=== PATIENT | female | born 1985 | race Caucasian/White ===

== ENCOUNTER 2017-09-19 10:18 | Emergency (ER) | payer SELFPAY ==
[2017-09-19 11:41] LABS: Barbiturates NEGATIVE; Benzodiazepines NEGATIVE; Cocaine NEGATIVE; Opiates NEGATIVE; Phencyclidine NEGATIVE; THC Cannibis POSITIVE
[2017-09-19 11:44] LABS: METHAMPHETAM POSITIVE
[2017-09-19 12:00] LABS: Absolute Lymphocytes (CBC) 1.5 K/uL (0.7-4.9); Absolute Monocytes 0.4 K/uL (0.1-1.3); Absolute Neutrophil 4.7 K/uL (1.8-8.0); Basophils % 0.4 % (0-1.3); Eosinophils % 0.7 % (0-4.4); Hematocrit 43.6 % (36.0-45.0); Lymphocytes % 22.8 % (15.3-44.8); MCH 33.4 pg (27.0-35.0); MCV 98.4 fL (80-100); MPV 8.4 fL (7.6-11.3); Monocytes % 5.7 % (3.3-12.3); RBC Red Blood Cell Count 4.44 M/uL (3.86-4.86)
[2017-09-19 12:02] LABS: Protime INR 1.04
[2017-09-19 12:06] LABS: Bicarbonate 23 mEq/L (21-31); Glucose Level 95 mg/dL (65-120); Potassium 3.9 mEq/L (3.6-5.0); Sodium Level 139 mEq/L (135-145)
[2017-09-19 12:12] LABS: ALT/SGPT 12 IU/L (10-60); AST/SGOT 18 IU/L (10-42); Albumin 4.5 g/dL (3.2-5.5); Alkaline Phosphatase 77 IU/L (42-121); BUN Blood Urea Nitrogen 12 mg/dL (6-20); Bilirubin Direct 0.1 mg/dL (0-0.2); Bilirubin Total 0.5 mg/dL (0.3-1.2); Protein, Total 7.4 g/dL (6.0-8.3)
[2017-09-19 12:14] LABS: Alcohol Serum/Plasma < 10 mg/dl; Salicylates Level < 4.0 mg/dl (<30)
[2017-09-19 13:20] LABS: Urine Blood 2+ (NEG); Urine Glucose NEGATIVE (NEG); Urine Protein NEGATIVE (NEG); Urine Specific Gravity 1.015 (1.005-1.030)
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
[2017-09-19 16:14] VITALS: TEMP 97.5
[2017-09-19 16:19] VITALS: O2SAT 99
[2017-09-19 16:20] VITALS: BP 114/77
--- NOTE | 2017-09-20 10:32 | EKG ---
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
== END 2017-09-19 16:08 | disposition home or self-care (01) ==
LOC: ER 10:18
DX: S61.512A Laceration without foreign body of left wrist, initial encounter (principal); F41.8 Other specified anxiety disorders; W26.0XXA Contact with knife, initial encounter; Y93.9 Activity, unspecified; Y92.000 Kitchen of unspecified non-institutional (private) residence as the place of occurrence of the external cause
CPT/HCPCS: 36415; 80048; 80076; 80307; 80320; 80329; 81003; 81025; 85025; 85610; 85730; 93005; 99284

== ENCOUNTER 2018-12-29 16:03 | Emergency (ER) | payer SELFPAY ==
[2018-12-29] MEDS ORDERED: TETANUS & DIPHTHERIA TOX,ADULT 0.5 ML VIAL ONE (16:33)
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
--- NOTE | 2018-12-29 16:56 | EDPHYS ---
Physician Documentation [facility] Name: Glenda Dang Age: 33 yrs Sex: Female : 1985 Arrival Date: 12/29/2018 Time: 16:04 Bed 30 Private MD: ED Physician Alejandro Parish HPI: 12/29 16:25 This 33 yrs old Female presents to ER via Ambulatory with complaints of cp laceration to left lower leg. 16:25 The patient presents with a laceration. The complaints affect the lateral aspect of cp left calf. Context: resulted from piece of large broken glass of a coffee mug. Onset: The symptoms/episode began/occurred yesterday morning. Associated signs and symptoms: Pertinent positives: mild bleeding, Pertinent negatives numbness, warmth. Treatment prior to arrival includes: wrap bandage. 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 - Social history:: Smoking status: Patient uses tobacco products, smokes one-half pack cigarettes per day. - Ebola Screening: : No symptoms or risks identified at this time. ROS: 16:30 Constitutional: Negative for body aches, chills, fever, poor PO intake. cp 16:30 Eyes: Negative for injury, pain, redness, and discharge. cp 16:30 ENT: Negative for drainage from ear(s), ear pain, sore throat, difficulty swallowing, difficulty handling secretions. 16:30 Cardiovascular: Negative for chest pain. 16:30 Respiratory: Negative for cough, shortness of breath, wheezing. 16:30 Abdomen/GI: Negative for abdominal pain, nausea, vomiting, and diarrhea. 16:30 Skin: Positive for laceration(s), of the left lower leg. 16:30 All other systems are negative. Exam: 16:35 Constitutional: The patient appears in no acute distress, alert, awake, well developed, cp well nourished. 16:35 Head/Face: Normocephalic, atraumatic. cp 16:35 Skin: cellulitis, is not appreciated, injury, laceration(s), the wound is approximately cp 4 cm(s), of the left upper leg, that can be described as no foreign body, linear, with mild bleeding. Vital Signs: 16:12 BP 105 / 69; Pulse 76; Resp 18 S; Temp 98.4(TE); Pulse Ox 99% on R/A; Weight 77.11 kg aa5 (R); Height 5 ft. 5 in. (165.10 cm) (R); Pain 0/10; 16:59 BP 106 / 66; Pulse 75; Resp 17; Temp 98; Pulse Ox 100% on R/A; rv 16:12 Body Mass Index 28.29 (77.11 kg, 165.10 cm) aa5 MDM: 16:18 Patient medically screened. cp 16:45 Differential diagnosis: open fracture, cellulitis, simple laceration. cp 16:52 Data reviewed: vital signs, nurses notes, and as a result, I will discharge patient. cp 16:52 Counseling: I had a detailed discussion with the patient and/or guardian regarding: the cp historical points, exam findings, and any diagnostic results supporting the discharge/admit diagnosis, to return to the emergency department if symptoms worsen or persist or if there are any questions or concerns that arise at home. Response to treatment: the patient's symptoms have markedly improved after treatment. 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 Exp: rv 08/21/2020. Lot #: [id number]. } Route: IM; Site: right deltoid; 16:59 Follow up: Response: No adverse reaction rv Disposition: 12/30 15:39 Co-signature as Attending Physician, Alejandro Parish MD. gs Disposition: 12/29/18 16:53 Discharged to Home. Impression: Laceration without foreign body of lower leg - left. - Condition is Stable. - Discharge Instructions: Laceration Care, Adult. - Prescriptions for Keflex 500 mg Oral Capsule - take 1 capsule by ORAL route every 8 hours for 10 days; 30 capsule. - Medication Reconciliation Form, Thank You Letter, Antibiotic Education, Prescription Opioid Use form. - Follow up: Private Physician; When: 1 - 2 days; Reason: Wound Recheck. - Problem is new. - Symptoms have improved. Signatures: Yesenia Conrad, RN RN aa5 Nilson Ulrich PA PA cp Alejandro Parish MD MD gs Weston Ospina RN RN rv Corrections: (The following items were deleted from the chart) 12/29 17:00 16:53 12/29/2018 16:53 Discharged to Home. Impression: Laceration without foreign body rv of lower leg - left. Condition is Stable. Forms are Medication Reconciliation Form, Thank You Letter, Antibiotic Education, Prescription Opioid Use. Follow up: Private Physician; When: 1 - 2 days; Reason: Wound Recheck. Problem is new. Symptoms have improved. cp
[2018-12-29 18:08] VITALS: BP 106/66; TEMP 98; O2SAT 100
== END 2018-12-29 17:00 | disposition home or self-care (01) ==
LOC: ER 16:03
DX: S81.812A Laceration without foreign body, left lower leg, initial encounter (principal); W25.XXXA Contact with sharp glass, initial encounter; Y93.9 Activity, unspecified; Y92.9 Unspecified place or not applicable; Z23 Encounter for immunization; F17.210 Nicotine dependence, cigarettes, uncomplicated
CPT/HCPCS: 90471; 90714; 99284

== ENCOUNTER 2019-05-14 13:34 | Emergency (ER) | payer SELFPAY ==
--- NOTE | 2019-05-14 14:23 | EDPHYS ---
Physician Documentation [facility] Name: Glenda Dang Age: 34 yrs Sex: Female : 1985 Arrival Date: 05/14/2019 Time: 13:36 Bed 23 Private MD: ED Physician Estuardo Munguia HPI: 05/14 14:20 This 34 yrs old Female presents to ER via Ambulatory with complaints of kb Foreign Body In Ear - bead. 14:20 The patient presents with a foreign body sensation, a fullness. The complaints affect kb the right ear. Onset: The symptoms/episode began/occurred yesterday. Modifying factors: The symptoms are alleviated by nothing, the symptoms are aggravated by nothing. Associated signs and symptoms: The patient has no apparent associated signs or symptoms. Severity of symptoms: At their worst the symptoms were moderate in the emergency department the symptoms are unchanged. The patient has not experienced similar symptoms in the past. The patient has not recently seen a physician. Pt reports she felt pressure in her ears so she put a bead in each one. Was able to get the bead out of the left ear, but couldn't get it out of the right. Comes in with bead stuck in right ear canal. . Historical: - Allergies: 14:06 No Known Allergies; tr5 - PMHx: 14:06 Anxiety; Depression; tr5 - PSHx: 14:06 None; tr5 - Immunization history:: Adult Immunizations up to date. - Social history:: Smoking status: Patient uses tobacco products, smokes one pack cigarettes per day. - Ebola Screening: : No symptoms or risks identified at this time. ROS: 14:19 Constitutional: Negative for fever, chills, and weight loss, Neck: Negative for injury, kb pain, and swelling, Cardiovascular: Negative for chest pain, palpitations, and edema, Respiratory: Negative for shortness of breath, cough, wheezing, and pleuritic chest pain, Abdomen/GI: Negative for abdominal pain, nausea, vomiting, diarrhea, and constipation, MS/Extremity: Negative for injury and deformity, Skin: Negative for injury, rash, and discoloration, Neuro: Negative for headache, weakness, numbness, tingling, and seizure. 14:19 ENT: Positive for ear pain, foreign body sensation. Exam: 14:18 Constitutional: This is a well developed, well nourished patient who is awake, alert, kb and in no acute distress. Head/Face: Normocephalic, atraumatic. Neck: Trachea midline, no thyromegaly or masses palpated, and no cervical lymphadenopathy. Supple, full range of motion without nuchal rigidity, or vertebral point tenderness. No Meningismus. Chest/axilla: Normal chest wall appearance and motion. Nontender with no deformity. No lesions are appreciated. Cardiovascular: Regular rate and rhythm with a normal S1 and S2. No gallops, murmurs, or rubs. Normal PMI, no JVD. No pulse deficits. Respiratory: Lungs have equal breath sounds bilaterally, clear to auscultation and percussion. No rales, rhonchi or wheezes noted. No increased work of breathing, no retractions or nasal flaring. Abdomen/GI: Soft, non-tender, with normal bowel sounds. No distension or tympany. No guarding or rebound. No evidence of tenderness throughout. Skin: Warm, dry with normal turgor. Normal color with no rashes, no lesions, and no evidence of cellulitis. MS/ Extremity: Pulses equal, no cyanosis. Neurovascular intact. Full, normal range of motion. Neuro: Awake and alert, GCS 15, oriented to person, place, time, and situation. Cranial nerves II-XII grossly intact. Motor strength 5/5 in all extremities. Sensory grossly intact. Cerebellar exam normal. Normal gait. 14:18 ENT: External ear(s): are unremarkable, Ear canal(s): foreign body, a bead, in the right external ear canal, TM's: bulging, bilaterally, fluid levels, bilaterally, Nose: is normal, Mouth: is normal. Vital Signs: 14:06 BP 123 / 66; Pulse 98; Resp 18; Temp 98.5(O); Pulse Ox 98% on R/A; Weight 61.23 kg; tr5 Procedures: 14:18 Foreign Body Removal: a bead, from the right ear canal, by using a curette, Dressing: kb none, The patient tolerated the removal well. MDM: 13:57 Patient medically screened. kb 14:18 Data reviewed: vital signs, nurses notes. Data interpreted: Pulse oximetry: on room air kb is 98 %. Interpretation: normal. Counseling: I had a detailed discussion with the patient and/or guardian regarding: the historical points, exam findings, and any diagnostic results supporting the discharge/admit diagnosis, the need for outpatient follow up, a family practitioner, to return to the emergency department if symptoms worsen or persist or if there are any questions or concerns that arise at home. Administered Medications: No medications were administered Disposition: 16:33 Co-signature as Attending Physician, Estuardo Munguia MD I agree with the assessment and kdr plan of care. Disposition: 05/14/19 14:22 Discharged to Home. Impression: Otitis media, unspecified, bilateral, Foreign body in right ear - removed. - Condition is Stable. - Discharge Instructions: Otitis Media, Adult, [id number], Ear Foreign Body, [id number]. - Prescriptions for Amoxicillin 875 mg Oral Tablet - take 1 tablet by ORAL route every 12 hours for 10 days; 20 tablet. - Medication Reconciliation Form, Thank You Letter, Antibiotic Education, Prescription Opioid Use form. - Follow up: Emergency Department; When: As needed; Reason: Worsening of condition. Follow up: Private Physician; When: 2 - 3 days; Reason: Recheck today's complaints, Continuance of care, Re-evaluation by your physician. Signatures: June Lynn, RESIDENT INTERN-C RESIDENT INTERN-Ckb Estuardo Munguia MD MD kdr Carlos Stewart RN RN tr5 Corrections: (The following items were deleted from the chart) 14:28 14:22 05/14/2019 14:22 Discharged to Home. Impression: Otitis media, unspecified, tr5 bilateral; Foreign body in right ear - removed. Condition is Stable. Forms are Medication Reconciliation Form, Thank You Letter, Antibiotic Education, Prescription Opioid Use. Follow up: Emergency Department; When: As needed; Reason: Worsening of condition. Follow up: Private Physician; When: 2 - 3 days; Reason: Recheck today's complaints, Continuance of care, Re-evaluation by your physician. kb
--- NOTE | 2019-05-14 14:23 | ER ---
Nurse's Notes [facility] Name: Glenda Dang Age: 34 yrs Sex: Female : 1985 Arrival Date: 05/14/2019 Time: 13:36 Bed 23 Private MD: Diagnosis: Otitis media, unspecified, bilateral;Foreign body in right ear-removed Presentation: 05/14 14:04 Presenting complaint: Patient states: "Yesterday I put a bead in my R ear and now i tr5 can't get it out. I tried using a kalyan pin to get it out but it is stuck.". Transition of care: patient was not received from another setting of care. Onset of symptoms was May 14, 2019. Risk Assessment: Do you want to hurt yourself or someone else? Patient reports no desire to harm self or others. Initial Sepsis Screen: Does the patient meet any 2 criteria? No. Patient's initial sepsis screen is negative. Does the patient have a suspected source of infection? No. Patient's initial sepsis screen is negative. Care prior to arrival: None. 14:04 Method Of Arrival: Ambulatory tr5 14:04 Acuity: NHI 4 tr5 Historical: - Allergies: 14:06 No Known Allergies; tr5 - PMHx: 14:06 Anxiety; Depression; tr5 - PSHx: 14:06 None; tr5 - Immunization history:: Adult Immunizations up to date. - Social history:: Smoking status: Patient uses tobacco products, smokes one pack cigarettes per day. - Ebola Screening: : No symptoms or risks identified at this time. Screenin:08 Abuse screen: Denies threats or abuse. Nutritional screening: No deficits noted. tr5 Tuberculosis screening: No symptoms or risk factors identified. Fall Risk None identified. Assessment: 14:08 General: Appears in no apparent distress. Behavior is calm, cooperative, appropriate tr5 for age. Pain: Denies pain. Neuro: Level of Consciousness is awake, alert, obeys commands, Oriented to person, place, time, Rhinologist are equal bilaterally Moves all extremities. Cardiovascular: Heart tones present Capillary refill < 3 seconds. Respiratory: Airway is patent Respiratory effort is even, unlabored. GI: No signs and/or symptoms were reported involving the gastrointestinal system. : No signs and/or symptoms were reported regarding the genitourinary system. EENT: Ear canal w/ foreign body noted from right ear. Derm: No signs and/or symptoms reported regarding the dermatologic system. Musculoskeletal: No signs and/or symptoms reported regarding the musculoskeletal system. Vital Signs: 14:06 BP 123 / 66; Pulse 98; Resp 18; Temp 98.5(O); Pulse Ox 98% on R/A; Weight 61.23 kg; tr5 ED Course: 13:36 Patient arrived in ED. as 13:57 [facility]C [facility] kb 13:57 Estuardo Munguia MD is Attending Physician. kb 14:04 Carlos Stewart RN is Primary Nurse. tr5 14:05 Triage completed. tr5 14:06 Arm band placed on Patient placed. tr5 14:08 Bed in low position. Call light in reach. Side rails up X 1. tr5 14:27 No provider procedures requiring assistance completed. Patient did not have IV access tr5 during this emergency room visit. Administered Medications: No medications were administered Outcome: 14:22 Discharge ordered by MD. kb 14:27 Discharged to home ambulatory. tr5 14:27 Condition: stable 14:27 Discharge instructions given to patient, family, Instructed on discharge instructions, follow up and referral plans. medication usage, Demonstrated understanding of instructions, follow-up care, medications, Prescriptions given X 1. 14:28 Patient left the ED. tr5 Signatures: June Lynn FNP-C FNP-Ckb Martinez, Amelia as Carlos Stewart, RN RN tr5
[2019-05-14 14:34] VITALS: BP 123/66; TEMP 98.5; O2SAT 98
== END 2019-05-14 14:28 | disposition home or self-care (01) ==
LOC: ER 13:34
PROC: 09C3XZZ Extirpation of Matter from Right External Auditory Canal, External Approach (ICD-10-PCS; principal; 2019-05-14)
DX: T16.1XXA Foreign body in right ear, initial encounter (principal); H66.93 Otitis media, unspecified, bilateral; F17.210 Nicotine dependence, cigarettes, uncomplicated
CPT/HCPCS: 99282

== ENCOUNTER 2019-08-18 12:26 | Emergency (ER) | payer SELFPAY ==
[2019-08-18 15:07] VITALS: BP 120/90; TEMP 98.1; O2SAT 99
== END 2019-08-18 15:01 | disposition home or self-care (01) ==
LOC: ER 12:26
PROC: 0JQ10ZZ Repair Face Subcutaneous Tissue and Fascia, Open Approach (ICD-10-PCS; principal; 2019-08-18)
DX: S01.412A Laceration without foreign body of left cheek and temporomandibular area, initial encounter (principal); W01.0XXA Fall on same level from slipping, tripping and stumbling without subsequent striking against object, initial encounter; Y93.89 Activity, other specified; Y92.9 Unspecified place or not applicable; Z23 Encounter for immunization; F17.210 Nicotine dependence, cigarettes, uncomplicated
CPT/HCPCS: 70450; 70486; 76377; 90714; 99284

== ENCOUNTER 2024-06-23 20:53 | Emergency (ER) | payer SELFPAY ==
--- OUTSIDE RECORDS SUMMARY | 2024-06-23 20:59 | XMS REPORT | Continuity of Care Document ---
Author Name Unknown Address [address] [facility] [address] [place] [address] [facility] [address] [facility] 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 Ordering Clinician Indication Dosage Frequency Signature (SIG) Comments Components Source Wellbutrin XL 300 mg 24 hr tablet, extended release 01-19 00:00: 00 Yes 1mg Gabriel Ignacio Latuda 40 mg tablet 01-19 00:00: 00 Yes 1mg Gabriel Ignacio hydroxyzine HCl 25 mg tablet 01-19 00:00: 00 Yes 1mg Gabriel Ignacio buspirone 15 mg tablet 01-19 00:00: 00 Yes 1mg Gabriel Ignacio gabapentin 300 mg capsule 01-19 00:00: 00 Yes 1mg Gabriel Ignacio methocarbam ol 500 mg tablet 01-14 00:00: 00 Yes 1mg Gabriel Ignacio omeprazole 20 mg capsule,del ayed release 01-14 00:00: 00 Yes 1mg Gabriel Ignacio Wellbutrin XL 300 mg 24 hr tablet, extended release 01-05 00:00: 00 Yes 1mg Gabriel Ignacio Latuda 20 mg tablet 01-05 00:00: 00 Yes 1mg Gabriel Ignacio hydroxyzine HCl 25 mg tablet 01-05 00:00: 00 Yes 1mg Gabriel Ignacio buspirone 15 mg tablet 01-05 00:00: 00 Yes 1mg Gabriel Ignacio gabapentin 300 mg capsule 0 8- 00:00: 00 Yes 1mg Gabriel Ignacio Wellbutrin XL 300 mg 24 hr tablet, extended release 0 8- 00:00: 00 Yes 1mg Gabriel Ignacio Latuda 20 mg tablet 0 8- 00:00: 00 Yes 1mg Gabriel Ignacio hydroxyzine HCl 25 mg tablet 0 8- 00:00: 00 Yes 1mg Gabriel Ignacio buspirone 15 mg tablet 0 8- 00:00: 00 Yes 1mg Gabriel Ignacio gabapentin 300 mg capsule 0 8- 00:00: 00 Yes 1mg Gabriel Ignacio Wellbutrin XL 300 mg 24 hr tablet, extended release 8- 00:00: 00 Yes 1mg Gabriel Ignacio Latuda 20 mg tablet 0 8- 00:00: 00 Yes 1mg Gabriel Ignacio hydroxyzine HCl 25 mg tablet 0 8- 00:00: 00 Yes 1mg Gabriel Ignacio buspirone 15 mg tablet 0 8- 00:00: 00 Yes 1mg Gabriel Ignacio gabapentin 300 mg capsule 8- 00:00: 00 Yes 1mg Gabriel Ignacio olanzapine 15 mg tablet 0 7- 00:00: 00 Yes 1mg Gabriel Ignacio gabapentin 300 mg capsule 0 7- 00:00: 00 Yes 1mg Gabriel Ignacio Wellbutrin XL 300 mg 24 hr tablet, extended release 0 7- 00:00: 00 Yes 1mg Gabriel Ignacio buspirone 15 mg tablet 0 7- 00:00: 00 Yes 1mg Gabriel Ignacio Wellbutrin XL 300 mg 24 hr tablet, extended release 0 7- 00:00: 00 Yes 1mg Gabriel Ignacio buspirone 15 mg tablet 0 7- 00:00: 00 Yes 1mg Gabriel Ignacio Wellbutrin XL 300 mg 24 hr tablet, extended release 0 6-20 00:00: 00 Yes 1mg Gabriel Ignacio hydroxyzine HCl 25 mg tablet 0 6-20 00:00: 00 Yes 1mg Gabriel Ignacio olanzapine 15 mg tablet -20 00:00: 00 Yes 1mg Gabriel Ignacio buspirone 15 mg tablet 20 00:00: 00 Yes 1mg Gabriel Ignacio gabapentin 300 mg capsule -20 00:00: 00 Yes 1mg Gabriel Ignacio hydroxyzine HCl 25 mg tablet - 00:00: 00 Yes 1mg Gabriel Ignacio olanzapine 15 mg tablet - 00:00: 00 Yes 1mg Gabriel Ignacio gabapentin 100 mg capsule 10-15 00:00: 00 Yes 1mg Gabriel Ignacio TAKE 1 TABLET BY MOUTH AT BEDTIME - 00:00: 00 Yes Gabriel Ignacio TAKE 1 TABLET BY MOUTH THREE TIMES DAILY - 00:00: 00 Yes 15 Gabriel Ignacio Wellbutrin XL 300 mg 24 hr tablet, extended release - 00:00: 00 Yes 1mg Gabriel Ignacio hydroxyzine HCl 25 mg tablet - 00:00: 00 Yes 1mg Gabriel Ignacio buspirone 15 mg tablet - 00:00: 00 Yes 1mg Gabriel Ignacio Zyprexa 10 mg tablet - 00:00: 00 Yes 1mg Gabriel Ignacio gabapentin 300 mg capsule -21 00:00: 00 Yes 1mg Gabriel Ignacio Wellbutrin XL 300 mg 24 hr tablet, extended release 18 00:00: 00 Yes 1mg Gabriel Ignacio hydroxyzine HCl 25 mg tablet -18 00:00: 00 Yes 1mg Gabriel Ignacio buspirone 15 mg tablet -18 00:00: 00 Yes 1mg Gabriel Ignacio TAKE ONE (1) TABLET(S) BY MOUTH DAILY. 18 00:00: 00 Yes Gabriel Ignacio TAKE 1 TABLET TWICE DAILY. 07-17 00:00: 00 09-24 00:00 :00 No 5 Gabriel Ignacio TAKE 1 TABLET TWICE DAILY NEEDED FOR ANXIETY 07-17 00:00: 00 09-24 00:00 :00 No 25 Gabriel Ignacio TAKE 1 TABLET DAILY. 07-17 00:00: 00 09-24 00:00 :00 No 300 Gabriel Ignacio TAKE 1 TABLET AT BEDTIME. 07-17 00:00: 00 09-24 00:00 :00 No 5 Gabriel Ignacio TAKE 1 TABLET 3 TIMES DAILY. 07-17 00:00: 00 09-24 00:00 :00 No 15 Gabrielrico Ignacio bupropion HCl XL 300 mg 24 hr tablet, extended release 07-12 00:00: 00 Yes mg Gabriel Ignacio buspirone 10 mg tablet 07-12 00:00: 00 Yes mg Gabriel Ignacio hydroxyzine HCl 25 mg tablet 07-12 00:00: 00 Yes mg Gabriel Ignacio risperidone 1 mg tablet 07-12 00:00: 00 Yes mg Gabriel Ignacio TAKE 1 TABLET BY MOUTH ONCE DAILY 07-11 00:00: 00 Yes Gabrielrico Ignacio TAKE 1 TABLET BY MOUTH TWICE DAILY 07-11 00:00: 00 Yes Gabriel Ignacio TAKE 1 TABLET DAILY. 07-11 00:00: 00 09-24 00:00 :00 No 300 Gabriel Ignacio TAKE 1 TABLET TWICE DAILY. 07-11 00:00: 00 09-24 00:00 :00 No 1 Gabriel Ignacio TAKE 1 TABLET TWICE DAILY NEEDED FOR ANXIETY 07-11 00:00: 00 09-24 00:00 :00 No 25 Gabrielrico Ignacio TAKE 1 TABLET 3 TIMES DAILY. 07-11 00:00: 00 09-24 00:00 :00 No 10 Gabrielrico Igncaio TAKE 1 TABLET 3 TIMES DAILY. -20 00:00: 00 09-24 00:00 :00 No 10 Gabrielrico Ignacio TAKE 1 TABLET TWICE DAILY NEEDED FOR ANXIETY 2-20 00:00: 00 09-24 00:00 :00 No 25 Gabrielrico Ignacio TAKE 1 TABLET TWICE DAILY. 2024-0 2-20 00:00: 00 09-24 00:00 :00 No 1 Gabriel Jessie Ignacio TAKE 1 CAPSULE 3 TIMES DAILY. 2-20 00:00: 00 09-24 00:00 :00 No 300 Gabriel Jsesie Ignacio TAKE 1 TABLET DAILY. 2-20 00:00: 00 09-24 00:00 :00 No 300 Gabrielrico Ignacio TAKE 1 TABLET BY MOUTH EVERY 8 HOURS NEEDED FOR PAIN. TAKE WITH EXTRA STRENGTH TYLENOL 2022-05 2 00:00: 00 Yes Gabrielrico Ignacio TAKE 1 TABLET TWICE DAILY. 2022-05 2- 00:00: 00 09-24 00:00 :00 No 1 Gabriel Jessie Ignacio TAKE 1 TABLET TWICE DAILY. 2022-05 2- 00:00: 00 09-24 00:00 :00 No 10 Gabrielrico Ignacio TAKE 1 CAPSULE 3 TIMES DAILY. 2022-05 2 00:00: 00 09-24 00:00 :00 No 300 Gabrielrico Ignacio TAKE 1 TABLET TWICE DAILY NEEDED FOR ANXIETY 2022-05 2- 00:00: 00 09-24 00:00 :00 No 25 Gabriel F Mateus TAKE 1 TABLET DAILY. 2022-05 2 00:00: 00 09-24 00:00 :00 No 150 Gabrielrico Ignacio TAKE 1 CAPSULE 3 TIMES DAILY. 2022-05 1-03 00:00: 00 09-24 00:00 :00 No 300 Gabrielrico Ignacio 15 -30 ML QD ORALLY NEEDED CONSTIPATIO N 2022-05 0-26 00:00: 00 09-24 00:00 :00 No 1015 Gabriel Jessie Ignacio TAKE 1 TABLET TWICE DAILY. 2022-05 0-20 00:00: 00 09-24 00:00 :00 No 10 Gabriel F Mateus TAKE 1 TABLET DAILY. 2022-05 0-20 00:00: 00 09-24 00:00 :00 No 150 Gabriel F Mateus TAKE 1 TABLET TWICE DAILY NEEDED FOR ANXIETY 2022-05 0-20 00:00: 00 09-24 00:00 :00 No 25 Gabriel F Mateus TAKE 1 TABLET TWICE DAILY. 2022-05 0-20 00:00: 00 09-24 00:00 :00 No 5 Gabriel Jessie Ignacio TAKE 1 TABLET DAILY. 2022-05 013 00:00: 00 Yes 150 Gabriel F Mateus TAKE 1 TABLET TWICE DAILY. 2022-05 013 00:00: 00 Yes 1 Gabrielrico Ignacio TAKE 1 TABLET TWICE DAILY NEEDED FOR ANXIETY 2022-05 0 00:00: 00 Yes 25 Gabriel F Mateus TAKE 1 TABLET TWICE DAILY. 2022-05 0 00:00: 00 Yes 10 Gabriel F Mateus TAKE 1 TABLET TWICE DAILY. 13 00:00: 00 09-24 00:00 :00 No 5 Gabriel F Mateus TAKE 1 TABLET TWICE DAILY NEEDED FOR ANXIETY 01-23 00:00: 00 09-24 00:00 :00 No 25 Gabriel F Mateus TAKE 1 TABLET TWICE DAILY. 01-23 00:00: 00 09-24 00:00 :00 No 10 Gabriel F Mateus TAKE 1 TABLET DAILY. 9 00:00: 00 09-24 00:00 :00 No 150 Gabriel F Mateus TAKE 1 TABLET TWICE DAILY. 816 00:00: 00 09-24 00:00 :00 No 10 Gabriel F Mateus TAKE 1 TABLET TWICE DAILY NEEDED FOR ANXIETY 16 00:00: 00 09-24 00:00 :00 No 25 Gabriel F Mateus TAKE 1 TABLET DAILY. 816 00:00: 00 09-24 00:00 :00 No 150 Gabriel F Mateus TAKE 1 TABLET AT BEDTIME. 8-16 00:00: 00 09-24 00:00 :00 No 20 Gabriel F Mateus TAKE 1 TABLET TWICE DAILY. - 00:00: 00 09-24 00:00 :00 No 10 Gabriel F Mateus TAKE 1 TABLET TWICE DAILY NEEDED FOR ANXIETY 0 11-20 00:00: 00 09-24 00:00 :00 No 25 Gabriel F Mateus TAKE 1 NIGHTLY 11-20 00:00: 09-24 00:00 :00 No 15 Gabriel Jessie Ignacio TAKE 1 TABLET DAILY. 11-20 00:00: 00 09-24 00:00 :00 No 150 Gabriel Jessie Ignacio TAKE 1 TABLET DAILY. 10-31 00:00: 00 09-24 00:00 :00 No 150 Gabriel Ignacio TAKE 1 TABLET TWICE DAILY NEEDED FOR ANXIETY 10-31 00:00: 00 09-24 00:00 :00 No 25 Gabriel F Mateus TAKE 1 NIGHTLY 10-31 00:00: 00 09-24 00:00 :00 No 15 Gabriel Jessie Ignacio TAKE 1 TABLET TWICE DAILY. 10-31 00:00: 00 09-24 00:00 :00 No 75 Gabriel Jessie Ignacio TAKE 1/2 TABLET BY MOUTH EVERY 6 TO 8 HOURS NEEDED FOR NAUSEA 10-24 00:00: 00 Yes Gabriel Jessie Ignacio 15 ML NIGHTLY NEEDED 10-24 00:00: 00 09-24 00:00 :00 No 1015 Gabriel Jessie Ignacio TAKE 1 TABLET EVERY 6 TO 8 HOURS NEEDED NAUSEA. 10-24 00:00: 00 09-24 00:00 :00 No 125 Gabriel Jessie Ignacio TAKE 1 TABLET BY MOUTH DAILY 10-16 00:00: 00 Yes Gabrielrico Ignacio TAKE 1 TABLET DAILY. 10-16 00:00: 00 09-24 00:00 :00 No 150 Gabriel Jessie Ignacio TAKE 1 NIGHTLY 10-16 00:00: 00 09-24 00:00 :00 No 15 Gabriel Jessie Mateus GABAPENTIN 300MG 10-04 00:00: 00 09-24 00:00 :00 No Gabriel F Mateus BUSPIRONE 10MG 10-04 00:00: 00 09-24 00:00 :00 No Gabriel F Mateus TAKE 1 NIGHTLY 09-30 00:00: 00 09-24 00:00 :00 No 15 Gabriel Jessie Ignacio TAKE 1 CAPSULE 3 TIMES DAILY. 09-30 00:00: 00 09-24 00:00 :00 No 300 Gabriel Ignacio TAKE 1 CAPSULE EVERY MORNING. 09-30 00:00: 00 09-24 00:00 :00 No 20 Gabriel Ignacio TAKE 1 TABLET DAILY. 09-30 00:00: 00 09-24 00:00 :00 No 150 Gabriel Ignacio TAKE 1 TABLET TWICE DAILY. 09-30 00:00: 00 09-24 00:00 :00 No 10 Gabriel Ignacio GABAPENTIN 300 MG 2021-05 00:00: 00 09-24 00:00 :00 No Gabriel Ignacio Wellbutrin XL 300 mg 24 hr tablet, extended release 10-23 00:00: 00 Yes 1mg Gabriel Ignacio buspirone 10 mg tablet 10-23 00:00: 00 Yes 1mg Gabriel Ignacio Abilify 15 mg tablet 10-23 00:00: 00 Yes 1mg Gabriel Ignacio fluoxetine 40 mg capsule 10-23 00:00: 00 Yes 1mg Gabriel Ignacio Wellbutrin XL 300 mg 24 hr tablet, extended release 10-14 00:00: 00 Yes 1mg Gabriel Ignacio buspirone 10 mg tablet - 00:00: 00 Yes 1mg Gabriel Ignacio Abilify 15 mg tablet - 00:00: 00 Yes 1mg Gabriel Ignacio fluoxetine 40 mg capsule - 00:00: 00 Yes 1mg Gabriel Ignacio TAKE 1 TABLET BY MOUTH ONCE DAILY 10-14 00:00: 00 Yes Gabriel Ignacio TAKE 1 TABLET BY MOUTH NIGHTLY 10-14 00:00: 00 09-24 00:00 :00 No Gabriel Ignacio Abilify 15 mg tablet 09-21 00:00: 00 Yes 1mg Gabriel Ignacio Wellbutrin XL 300 mg 24 hr tablet, extended release -25 00:00: 00 Yes 1mg Gabriel Ignacio buspirone 10 mg tablet 2022-0 4-25 00:00: 00 Yes 1mg Gabriel Ignacio fluoxetine 40 mg capsule 0 4-25 00:00: 00 Yes 1mg Gabriel Ignacio Dose Unknown 0 3-24 00:00: 00 Yes Gabriel Ignacio Dose Unknown 0 3-24 00:00: 00 Yes Gabriel Ignacio fluoxetine 40 mg capsule 0 3-24 00:00: 00 Yes 1mg Gabriel Ignacio Dose Unknown 0 3-24 00:00: 00 Yes Gabriel Ignacio Dose Unknown 3-24 00:00: 00 Yes Gabriel Ignacio Dose Unknown 3- 00:00: 00 Yes Gabriel Ignacio Dose Unknown 3- 00:00: 00 Yes Gabriel Ignacio Dose Unknown 2-08 00:00: 00 Yes Gabriel Ignacio buspirone 5 mg tablet 0 2-08 00:00: 00 Yes 1mg Gabriel Ignacio Dose Unknown 2-08 00:00: 00 Yes Gabriel Ignacio Prozac 20 mg capsule 0 2-08 00:00: 00 Yes 1mg Gabriel Ignacio Wellbutrin XL 150 mg 24 hr tablet, extended release 0 1-04 00:00: 00 Yes 1mg Gabriel Ignacio Abilify 15 mg tablet 0 1-04 00:00: 00 Yes 1mg Gabriel Ignacio Prozac 20 mg capsule 0 1-04 00:00: 00 Yes 1mg Gabriel Ignacio Wellbutrin XL 150 mg 24 hr tablet, extended release 2020-05 2-13 00:00: 00 Yes 1mg Gabriel gInacio Abilify 15 mg tablet 2020-05 2-13 00:00: 00 Yes 1mg Gabriel Ignacio Prozac 20 mg capsule 2020-05 2-13 00:00: 00 Yes 1mg Gabriel Ignacio ibuprofen 600 mg tablet 2020-05 2-07 00:00: 00 Yes 1mg Gabriel Ignacio Abilify 20 mg tablet 2020-0 3-18 00:00: 00 Yes 1mg Gabriel Ignacio Lexapro 20 mg tablet 2020-0 3-18 00:00: 00 Yes 1mg Gabriel Ignacio Wellbutrin XL 300 mg 24 hr tablet, extended release 318 00:00: 00 Yes 1mg Gabriel Ignacio Lexapro 20 mg tablet 2- 00:00: 00 Yes 1mg Gabriel Ignacio Abilify 20 mg tablet 2 00:00: 00 Yes 1mg Gabriel Ignacio Wellbutrin XL 300 mg 24 hr tablet, extended release 2 00:00: 00 Yes 1mg Gabriel Ignacio Lexapro 20 mg tablet 2019-05 2- 00:00: 00 Yes 1mg Gabriel Ignacio Abilify 20 mg tablet 2019-05 00:00: 00 Yes 1mg Gabriel Ignacio Wellbutrin XL 300 mg 24 hr tablet, extended release 2019-05 00:00: 00 Yes 1mg Gabriel Ignacio Wellbutrin XL 150 mg 24 hr tablet, extended release 2019-05 00:00: 00 Yes 1mg Gabriel Ignacio Abilify 15 mg tablet 2019-05 00:00: 00 Yes 1mg Gabriel Ignacio Lexapro 20 mg tablet 2019-05 00:00: 00 Yes 1mg Gabriel Ignacio Wellbutrin XL 150 mg 24 hr tablet, extended release 2019-05 0- 00:00: 00 Yes 1mg Gabriel Ignacio Abilify 10 mg tablet 2019-05 0- 00:00: 00 Yes 1mg Gabriel Ignacio Lexapro 20 mg tablet 2019-05 0- 00:00: 00 Yes 1mg Gabriel Ignacio Wellbutrin XL 150 mg 24 hr tablet, extended release 2019-05 0- 00:00: 00 Yes 1mg Gabriel Ignacio olanzapine 15 mg tablet 2019-05 0-03 00:00: 00 Yes 1mg Gabriel Ignacio Wellbutrin XL 150 mg 24 hr tablet, extended release 01-13 00:00: 00 Yes 1mg Gabriel Ignacio olanzapine 15 mg tablet 01-13 00:00: 00 Yes 1mg Gabriel Ignacio Lexapro 20 mg tablet 9- 00:00: 00 Yes 1mg Gabriel Ignacio buspirone 10 mg tablet 9- 00:00: 00 Yes 1mg Gabriel Ignacio Wellbutrin XL 150 mg 24 hr tablet, extended release 2019-0 12-29 00:00: 00 Yes 1mg Gabriel Ignacio Lexapro 20 mg tablet 0 12-29 00:00: 00 Yes 1mg Gabriel Ignacio olanzapine 15 mg tablet 2019-0 12-13 00:00: 00 Yes 1mg Gabriel Ignacio Lexapro 10 mg tablet 0 12-13 00:00: 00 Yes 1mg Gabriel Ignacio buspirone 10 mg tablet 0 12-13 00:00: 00 Yes 1mg Gabriel Ignacio duloxetine 20 mg capsule,del ayed release 0 12-13 00:00: 00 Yes 1mg Gabriel Ignacio olanzapine 15 mg tablet 0 10-06 00:00: 00 Yes 1mg Gabriel Ignacio buspirone 10 mg tablet 0 10-06 00:00: 00 Yes 1mg Gabriel Ignacio duloxetine 60 mg capsule,del ayed release 2019-0 27 00:00: 00 Yes 1mg Gabriel Ignacio olanzapine 15 mg tablet 2019-0 08-31 00:00: 00 Yes 1mg Gabriel Ignacio buspirone 10 mg tablet 0 21 00:00: 00 Yes 1mg Gabriel Ignacio duloxetine 40 mg capsule,del ayed release 2019-0 -21 00:00: 00 Yes 1mg Gabriel Ignacio olanzapine 10 mg disintegrat ing tablet 0 4-20 00:00: 00 Yes 1mg Gabriel Ignacio olanzapine 15 mg tablet 2019-0 4-20 00:00: 00 Yes 1mg Gabriel Ignacio buspirone 10 mg tablet 2019-0 4-20 00:00: 00 Yes 1mg Gabriel Ignacio duloxetine 40 mg capsule,del ayed release 2019-0 4-20 00:00: 00 Yes 1mg Gabriel Ignacio duloxetine 20 mg capsule,del ayed release 2019-0 4-20 00:00: 00 Yes 1mg Gabriel Ignacio amoxicillin 500 mg tablet 2019-0 1-16 00:00: 00 Yes 1mg Gabriel Ignacio buspirone 5 mg tablet 2019-0 1-16 00:00: 00 Yes 1mg Gabriel Ignacio duloxetine 20 mg capsule,del ayed release 2019-0 1-16 00:00: 00 Yes 1mg Gabriel Ignacio buspirone 5 mg tablet 2018-05 016 00:00: 00 Yes 1mg Gabriel Ignacio buspirone 5 mg tablet 0 01-02 00:00: 00 Yes 1mg Gabriel Ignacio buspirone 7.5 mg tablet 01-01 00:00: 00 Yes 1mg Gabriel Ignacio cephalexin 500 mg capsule 01-01 00:00: 00 Yes 1mg Gabriel Ignacio buspirone 15 mg tablet 2017-05 00:00: 00 Yes 1mg Gabriel Ignacio Cymbalta 20 mg capsule,del ayed release 2017-05 00:00: 00 Yes 1mg Gabriel Ignacio buspirone 15 mg tablet 2017-05 00:00: 00 Yes 1mg Gabriel Ignacio Cymbalta 20 mg capsule,del ayed release 2017-05 00:00: 00 Yes 1mg Gabriel Ignacio buspirone 15 mg tablet 01-10 00:00: 00 Yes 1mg Gabriel Ignacio Cymbalta 20 mg capsule,del ayed release 01-10 00:00: 00 Yes 1mg Gabriel Ignacio buspirone 15 mg tablet 0 8 00:00: 00 Yes 1mg Gabriel Ignacio buspirone 15 mg tablet 806 00:00: 00 Yes 1mg Gabriel Ignacio buspirone 15 mg tablet 0 6-13 00:00: 00 Yes 1mg Gabriel Ignacio buspirone 15 mg tablet 0 16 00:00: 00 Yes 1mg Gabriel Ignacio buspirone 15 mg tablet 02 00:00: 00 Yes 1mg Gabriel Ignacio buspirone 15 mg tablet 0 4-17 00:00: 00 Yes 1mg Gabriel Ignacio buspirone 15 mg tablet 0 314 00:00: 00 Yes 1mg Gabriel Ignacio buspirone 10 mg tablet 0 2-07 00:00: 00 Yes 1mg Gabriel Ignacio buspirone 10 mg tablet 0 1-03 00:00: 00 Yes 1mg Gabriel Ignacio buspirone 10 mg tablet 2016-05 00:00: 00 Yes 1mg Gabriel Ignacio buspirone 5 mg tablet 2016-05 00:00: 00 Yes 1mg Gabriel F Mateus citalopram 40 mg tablet 2016-05 00:00: 00 Yes 1mg Gabriel F Mateus citalopram 40 mg tablet 01-16 00:00: 00 Yes 1mg Gabriel Jessie Ignacio haloperidol 1 mg tablet 01-16 00:00: 00 Yes 1mg Gabriel Jessie Ignacio propranolol 10 mg tablet 01-16 00:00: 00 Yes 1mg Gabriel Jessie Ignacio haloperidol 0.5 mg tablet 12-31 00:00: 00 Yes 1mg Gabriel Ignacio propranolol 10 mg tablet 12-31 00:00: 00 Yes 1mg Gabriel Ignacio citalopram 20 mg tablet 12-26 00:00: 00 Yes 1mg Gabriel Ignacio hydroxyzine HCl 50 mg tablet 12-11 00:00: 00 Yes 1mg Gabriel Ignacio Vital Signs Vital Name Observation Time Observation Value Comments S ource BP Systolic 2023-07-05 09:50:00 110 mm[Hg] Step hen F Mateus BP Diastolic 2023-07-05 09:50:00 75 mm[Hg] Reji phen F Mateus Weight Measured 2023-07-05 09:50:00 223.00 pounds Gabriel F Mateus Height Measured 2023-07-05 09:50:00 65.00 inches Gabriel F Mateus Body Temperature 2023-07-05 09:50:00 97.90 degrees Gabriel F Mateus Heart Rate 2023-07-05 09:50:00 90.00 /min Kristie en F Mateus Respiratory Rate 2023-07-05 09:50:00 Gabriel F Mateus BP Systolic 2023-03-07 11:49:00 Step hen F Mateus BP Diastolic 2023-03-07 11:49:00 Reji phen F Mateus Weight Measured 2023-03-07 11:49:00 220.00 pounds Gabriel F Mateus Height Measured 2023-03-07 11:49:00 65.00 inches Gabriel F Mateus Body Temperature 2023-03-07 11:49:00 Gabriel F Mateus Heart Rate 2023-03-07 11:49:00 Kristie en F Mateus Respiratory Rate 2023-03-07 11:49:00 Gabriel F Mateus BP Systolic 2023-02-07 13:33:00 Step hen F Mateus BP Diastolic 2023-02-07 13:33:00 Reji phen F Mateus Weight Measured 2023-02-07 13:33:00 Gabriel F Mateus Height Measured 2023-02-07 13:33:00 Gabriel F Mateus Body Temperature 2023-02-07 13:33:00 Gabriel F Mateus Heart Rate 2023-02-07 13:33:00 Kristie en F Mateus Respiratory Rate 2023-02-07 13:33:00 Gabriel F Mateus BP Systolic 2022-10-31 17:41:00 Step hen F Mateus BP Diastolic 2022-10-31 17:41:00 Reji phen F Mateus Weight Measured 2022-10-31 17:41:00 Gabriel F Mateus Height Measured 2022-10-31 17:41:00 Gabriel F Mateus Body Temperature 2022-10-31 17:41:00 Gabriel F Mateus Heart Rate 2022-10-31 17:41:00 Kristie en F Mateus Respiratory Rate 2022-10-31 17:41:00 Gabriel F Mateus BP Systolic 2021-06-20 13:37:00 120 mm[Hg] Step hen F Mateus BP Diastolic 2021-06-20 13:37:00 78 mm[Hg] Reji phen F Mateus Weight Measured 2021-06-20 13:37:00 191.20 pounds Gabriel F Mateus Height Measured 2021-06-20 13:37:00 65.00 inches Gabriel F Mateus Body Temperature 2021-06-20 13:37:00 98.00 degrees Gabriel F Mateus Heart Rate 2021-06-20 13:37:00 107.00 /min Step hen F Mateus Respiratory Rate 2021-06-20 13:37:00 18.00 /min Gabriel F Mateus BP Systolic 2021-05-16 10:23:00 108 mm[Hg] Step hen F Mateus BP Diastolic 2021-05-16 10:23:00 69 mm[Hg] Reji phen F Mateus Weight Measured 2021-05-16 10:23:00 200.20 pounds Gabriel F Mateus Height Measured 2021-05-16 10:23:00 65.00 inches Gabriel F Mateus Body Temperature 2021-05-16 10:23:00 98.00 degrees Gabriel F Mateus Heart Rate 2021-05-16 10:23:00 96.00 /min Kristie en F Mateus Respiratory Rate 2021-05-16 10:23:00 20.00 /min Gabriel F Mateus BP Systolic 2021-04-24 13:54:00 106 mm[Hg] Step hen F Mateus BP Diastolic 2021-04-24 13:54:00 79 mm[Hg] Reji phen F Mateus Weight Measured 2021-04-24 13:54:00 196.60 pounds Gabriel F Mateus Height Measured 2021-04-24 13:54:00 65.00 inches Gabriel F Mateus Body Temperature 2021-04-24 13:54:00 98.00 degrees Gabriel F Mateus Heart Rate 2021-04-24 13:54:00 75.00 /min Kristie en F Mateus Respiratory Rate 2021-04-24 13:54:00 16.00 /min Gabriel F Mateus BP Systolic 2021-04-18 15:20:00 123 mm[Hg] Step hen F Mateus BP Diastolic 2021-04-18 15:20:00 75 mm[Hg] Reji phen F Mateus Weight Measured 2021-04-18 15:20:00 196.20 pounds Gabriel F Mateus Height Measured 2021-04-18 15:20:00 65.00 inches Gabriel F Mateus Body Temperature 2021-04-18 15:20:00 98.60 degrees Gabriel F Mateus Heart Rate 2021-04-18 15:20:00 90.00 /min Kristie en F Mateus Respiratory Rate 2021-04-18 15:20:00 Gabriel F Mateus BP Systolic 2019-12-14 17:45:00 120 mm[Hg] Step hen F Mateus BP Diastolic 2019-12-14 17:45:00 76 mm[Hg] Reji phen F Mateus Weight Measured 2019-12-14 17:45:00 182.80 pounds Gabriel F Mateus Height Measured 2019-12-14 17:45:00 65.00 inches Gabriel F Mateus Body Temperature 2019-12-14 17:45:00 100.00 degrees Gabriel F Mateus Heart Rate 2019-12-14 17:45:00 107.00 /min Jesu Ignacio Respiratory Rate 2019-12-14 17:45:00 16.00 /min Gabriel Ignacio BP Systolic 2019-05-28 10:06:00 115 mm[Hg] Jesu Ignacio BP Diastolic 2019-05-28 10:06:00 71 mm[Hg] Reji Ignacio Weight Measured 2019-05-28 10:06:00 168.60 pounds Gabriel Ignacio Height Measured 2019-05-28 10:06:00 65.00 inches Gabriel Ignaico Body Temperature 2019-05-28 10:06:00 98.20 degrees Gabriel Ignacio Heart Rate 2019-05-28 10:06:00 84.00 /min Kristie Ingacio Respiratory Rate 2019-05-28 10:06:00 Gabriel Ignacio Encounters Start Date/Time End Date/Time Encounter Type Admission Type Attending [facility] Care Department Encounter ID Source 2024-05-22 13:09:12 2024-05-22 13:09:12 Outpatient [facility] [id number] Gabriel Ignacio 2024-01-15 00:00:00 2024-01-15 00:00:00 Outpatient Visit [facility] [id number] Gabriel Ignacio 2023-12-30 13:01:31 2023-12-30 13:01:31 Outpatient [facility] S[facility] [id number] Gabriel Ignacio 2023-12-12 20:19:41 2023-12-12 20:19:41 Outpatient [facility] SFA [id number] Gabriel Ignacio 2023-12-04 08:59:37 2023-12-04 08:59:37 Outpatient [facility] [id number] Gabriel Ignacio 2023-11-21 13:41:43 2023-11-21 13:41:43 Outpatient [facility] [id number] Gabriel Ignacio 2023-07-05 09:18:24 2023-07-05 09:18:24 Outpatient [facility] [id number] Gabriel Ignacio 2023-03-07 11:48:59 2023-03-07 11:48:59 Outpatient [facility] [id number] Gabriel Ignacio 2023-02-22 10:50:38 2023-02-22 10:50:38 Outpatient [facility] [id number] Gabriel Ignacio 2023-02-07 13:01:28 2023-02-07 13:01:28 Outpatient [facility] [id number] Gabriel Ignacio 2023-02-06 14:01:57 2023-02-06 14:01:57 Outpatient [facility] [id number] Gabriel Ignacio 2022-11-20 11:06:59 2022-11-20 11:06:59 Outpatient [facility] [id number] Gabriel Ignacio 2022-02-27 19:43:54 2022-02-27 19:43:54 Outpatient [facility] [id number] Gabriel Ignacio Results Test Description Test Time Test Comments Results Result Co mments Source THYROID II PROFILE (TU,T4,FTI,TSH)2023-07-06 05:57:35* Test Item Value Reference Range Interpretation Comme nts T-UPTAKE (test code = 2817) 30.2 % 24.3-39.0 THYROX. BIND. CAPAC. (test code = 99051) 1.1 0.8-1.3 T4 (THYROXINE) (test code = 2819) 5.7 UG/DL 4.5-10.5 CORRECTED T4 (FTI) (test code = 2820) 5.2 UG/DL 4.2-11.6 TSH, THIRD GENERATION (test code = 2821) 1.060 UIU/ML 0.400-4.100 UNLESS OTHERWISE INDICATED, ALL TESTING PERFORMED AT [facility] [address] [place] [address] TRAVEL DIRECTOR: AUDRA DE LA GARZA M.D. CLIA NUMBER [id number] [facility] [place]. [id number] HEMOGLOBIN [id number] 05:56:12* Test Item Value Reference Range Interpretation Comme nts HEMOGLOBIN A1c (test code = 72120) 5.7 % 4.2-5.6 [facility] [employer] [facility] [employer] GUIDELINES FOR HGB A1C: PREDIABETES/INCREASED RISK . . . . . . . 5.7-6.4% DIAGNOSIS OF DIABETES . . . . . . . . . >=6.5% WITH CONFIRMATION OR APPROPRIATE SYMPTOMS NOTE: ASSAY MAY BE AFFECTED BY HEMOGLOBINOPATHIES (SICKLE CELL ANEMIA, S-C DISEASE, OTHERS) OR ARTIFICIALLY LOWERED BY DECREASED RED CELL SURVIVAL (HEMOLYTIC ANEMIAS, BLOOD LOSS, ETC.). CONSIDER ALTERNATE TESTING OR LABORATORY CONSULTATION. COMPREHENSIVE METABOLIC [id number] 05:52:00* Test Item Value Reference Range Interpretation Comme nts GLUCOSE (test code = 7) 102 MG/DL 70-99 H BUN (test code = 2207) 15 MG/DL 6-20 CREATININE (test code = 2214) 0.89 MG/DL 0.60-1.30 eGFR (2020 CKD-EPI) (test co de = 42940) 84 ML/MIN/1.73 >60 CALC BUN/CREAT (test code = 5) 17 RATIO 6-28 SODIUM (test code = 223) 136 MEQ/L 133-146 POTASSIUM (test code = 2228) 4.1 MEQ/L 3.5-5.4 CHLORIDE (test code = 2215) 102 MEQ/L 95-107 CARBON DIOXIDE (test code = 2206) 21 MEQ/L 19-31 CALCIUM (test code = 2209) 9.6 MG/DL 8.5-10.5 PROTEIN, TOTAL (test code = 222) 6.5 G/DL 6.1-8.3 ALBUMIN (test code = 2201) 4.4 G/DL 3.5-5.2 CALC GLOBULIN (test code = 2240) 2.1 G/DL 1.9-3.7 CALC A/G RATIO (test code = 2234) 2.1 RATIO 1.0-2.6 BILIRUBIN, TOTAL (test code = 7) 0.3 MG/DL <=1.2 ALKALINE PHOSPHATASE (test code = 2204) 76 U/L 40-112 AST (test code = 2218) 18 U/L 9-40 ALT (test code = 2219) 29 U/L 5-40 HEPATIC FUNCTION [id number] 05:52:00* Test Item Value Reference Range Interpretation Comme nts PROTEIN, TOTAL (test code = 222) 6.5 G/DL 6.1-8.3 ALBUMIN (test code = 2201) 4.4 G/DL 3.5-5.2 BILIRUBIN, TOTAL (test code = 2207) 0.3 MG/DL <=1.2 BILIRUBIN, DIRECT (test code = 2021) 0.1 MG/DL 0.0-0.3 ALKALINE PHOSPHATASE (test c ode = 4) 76 U/L 40-112 AST (test code = 8) 18 U/L 9-40 ALT (test code = 9) 29 U/L 5-40 CBC W/AUTO DIFF WITH [id number] 04:02:28* Test Item Value Reference Range Interpretation Comme nts WBC (test code = 1001) 5.1 K/UL 3.5-11.0 RBC (test code = 1002) 4.18 M/UL 3.80-5.40 HEMOGLOBIN (test code = 1003) 13.7 G/DL 11.5-15.5 HEMATOCRIT (test code = 1004) 39.8 % 34.0-45.0 MCV (test code = 1005) 95.2 fL 80.0-99.0 MCH (test code = 1006) 32.8 PG 25.0-33.0 MCHC (test code = 1007) 34.4 G/DL 31.0-36.0 RDW (test code = 1038) 11.8 % 11.5-15.0 NEUTROPHILS (test code = 1008) 57.1 % LYMPHOCYTES (test code = 1010) 29.5 % MONOCYTES (test code = 1011) 11.4 % EOSINOPHILS (test code = 1012) 1.2 % BASOPHILS (test code = 1013) 0.4 % IMMATURE GRANULOCYTES (test code = 1036) 0.4 % NUCLEATED RBCS (test code = 1065) 0.0 /100 WBC'S See_Comment [Automated messa ge] The system which generated this result transmitted reference range: 0.0. The reference range was not used to interpret this result as normal/abnormal. PLATELET COUNT (test code = 1015) 294 K/UL 130-400 ABSOLUTE NEUTROPHILS (test code = 1066) 2.91 K/UL 1.50-7.50 ABSOLUTE LYMPHOCYTES (test code = 1067) 1.50 K/UL 1.00-4.00 ABSOLUTE MONOCYTES (test code = 1068) 0.58 K/UL 0.20-1.00 ABSOLUTE EOSINOPHILS (test code = 1040) 0.06 K/UL 0.00-0.50 ABSOLUTE BASOPHILS (test code = 1069) 0.02 K/UL 0.00-0.20 ABS IMMATURE GRANULOCYTES (test code = 1020) 0.02 K/UL 0.00-0.10 ABS NUCLEATED RBCS (test code = 63473) 0.00 K/UL 0.00-0.11 HEMOGLOBIN [id number] 00:00:00* Test Item Value Reference Range Interpretation Comme nts HEMOGLOBIN A1c (test code = 33351) 5.7 % Gabriel IgnacioCBC W/AUTO [id number] 00:00:00* Test Item Value Reference Range Interpretation Comme nts WBC (test code = 1001) 5.1 K/UL RBC (test code = 1002) 4.18 M/UL HEMOGLOBIN (test code = 1003) 13.7 G/DL HEMATOCRIT (test code = 1004) 39.8 % MCV (test code = 1005) 95.2 fL MCH (test code = 1006) 32.8 PG MCHC (test code = 1007) 34.4 G/DL RDW (test code = 1038) 11.8 % NEUTROPHILS (test code = 1008) 57.1 % LYMPHOCYTES (test code = 1010) 29.5 % MONOCYTES (test code = 1011) 11.4 % EOSINOPHILS (test code = 1012) 1.2 % BASOPHILS (test code = 1013) 0.4 % IMMATURE GRANULOCYTES (test code = 1036) 0.4 % NUCLEATED RBCS (test code = 1065) 0.0 /100WBC'S PLATELET COUNT (test code = 1015) 294 K/UL ABSOLUTE NEUTROPHILS (test c ode = 1066) 2.91 K/UL ABSOLUTE LYMPHOCYTES (test c ode = 1067) 1.50 K/UL ABSOLUTE MONOCYTES (test cod e = 1068) 0.58 K/UL ABSOLUTE EOSINOPHILS (test c ode = 1040) 0.06 K/UL ABSOLUTE BASOPHILS (test cod e = 1069) 0.02 K/UL ABS IMMATURE GRANULOCYTES (t est code = 1020) 0.02 K/UL ABS NUCLEATED RBCS (test cod e = 75907) 0.00 K/UL Gabriel IgnacioCOMPREHENSIVE METABOLIC [id number] 00:00:00* Test Item Value Reference Range Interpretation Comme nts GLUCOSE (test code = 2217) 102 MG/DL BUN (test code = 2208) 15 MG/DL CREATININE (test code = 2214) 0.89 MG/DL eGFR (2020 CKD-EPI) (test co de = 17948) 84 ML/MIN/1.73 CALC BUN/CREAT (test code = 2235) 17 RATIO SODIUM (test code = 223) 136 MEQ/L POTASSIUM (test code = 2228) 4.1 MEQ/L CHLORIDE (test code = 2215) 102 MEQ/L CARBON DIOXIDE (test code = 2206) 21 MEQ/L CALCIUM (test code = 2209) 9.6 MG/DL PROTEIN, TOTAL (test code = 2229) 6.5 G/DL ALBUMIN (test code = 2201) 4.4 G/DL CALC GLOBULIN (test code = 2240) 2.1 G/DL CALC A/G RATIO (test code = 2234) 2.1 RATIO BILIRUBIN, TOTAL (test code = 2206) 0.3 MG/DL ALKALINE PHOSPHATASE (test code = 4) 76 U/L AST (test code = 2218) 18 U/L ALT (test code = 2219) 29 U/L Gabriel IgnacioLIVER (HEPATIC) FUNCTION [id number] 00:00:00* Test Item Value Reference Range Interpretation Comme nts PROTEIN, TOTAL (test code = 2229) 6.5 G/DL ALBUMIN (test code = 2201) 4.4 G/DL BILIRUBIN, TOTAL (test code = 2207) 0.3 MG/DL BILIRUBIN, DIRECT (test code = 2021) 0.1 MG/DL ALKALINE PHOSPHATASE (test c ode = 2203) 76 U/L AST (test code = 2218) 18 U/L ALT (test code = 2219) 29 U/L Gabriel [id number] 00:00:00* Test Item Value Reference Range Interpretation Comme nts PROLACTIN (test code = 2800) 125.0 NG/ML Gabriel IgnacioTHYROID II PROFILE (TU, T4, T7, TSH)[id number] 00:00:00* Test Item Value Reference Range Interpretation Comme nts T-UPTAKE (test code = 2817) 30.2 % THYROX. BIND. CAPAC. (test c ode = 33119) 1.1 T4 (THYROXINE) (test code = 2819) 5.7 UG/DL CORRECTED T4 (FTI) (test cod e = 2820) 5.2 UG/DL TSH, THIRD GENERATION (test code = 2821) 1.060 UIU/ML Gabriel IgnacioCBC W/AUTO [id number] 00:00:00* Test Item Value Reference Range Interpretation Comme nts WBC (test code = 1001) 6.5 K/UL RBC (test code = 1002) 4.07 M/UL HEMOGLOBIN (test code = 1003) 13.5 G/DL HEMATOCRIT (test code = 1004) 38.3 % MCV (test code = 1005) 94.1 fL MCH (test code = 1006) 33.2 PG MCHC (test code = 1007) 35.2 G/DL RDW (test code = 1038) 12.3 % NEUTROPHILS (test code = 1008) 63.5 % LYMPHOCYTES (test code = 1010) 24.7 % MONOCYTES (test code = 1011) 8.9 % EOSINOPHILS (test code = 1012) 2.6 % BASOPHILS (test code = 1013) 0.3 % PLATELET COUNT (test code = 1015) 305 K/UL Gabriel Roman MateusTHYROID II PROFILE (T3U, T4, T7, TSH)[id number] 00:00:00* Test Item Value Reference Range Interpretation Comme nts T3 UPTAKE (test code = 2817) 32.3 % T4 (THYROXINE) (test code = 2819) 5.5 UG/DL CALCULATED T7 (FTI) (test co de = 2820) 1.78 TSH (test code = 2821) 1.120 UIU/ML Gabriel Roman MateusCOMPREHENSIVE METABOLIC [id number] 00:00:00* Test Item Value Reference Range Interpretation Comme nts GLUCOSE (test code = 2217) 95 MG/DL BUN (test code = 2208) 12 MG/DL CREATININE (test code = 2214) 0.69 MG/DL eGFR AMER. (test cod e = 82417) 133 ML/MIN/1.73 eGFR NON- AMER. (test code = 60179) 114 ML/MIN/1.73 CALC BUN/CREAT (test code = 2235) 17 RATIO SODIUM (test code = 2231) 138 MEQ/L POTASSIUM (test code = 2228) 4.5 MEQ/L CHLORIDE (test code = 2215) 101 MEQ/L CARBON DIOXIDE (test code = 2206) 24 MEQ/L CALCIUM (test code = 2209) 9.5 MG/DL PROTEIN, TOTAL (test code = 2229) 6.6 G/DL ALBUMIN (test code = 2201) 4.2 G/DL CALC GLOBULIN (test code = 2240) 2.4 G/DL CALC A/G RATIO (test code = 2234) 1.8 RATIO BILIRUBIN, TOTAL (test code = 2207) 0.4 MG/DL ALKALINE PHOSPHATASE (test code = 2204) 78 U/L AST (test code = 2218) 16 U/L ALT (test code = 2219) 11 U/L Gabriel Ignacio Notes Date/Time Note Provider Source Gabriel Ignacio [facility]
[2024-06-23] MEDS ORDERED: LIDOCAINE 1% MPF 5 ML VIAL ONE (21:28)
[2024-06-23] MEDS ORDERED: SMZ./TMP. 800/160 MG TABLET ONE (21:29)
--- NOTE | 2024-06-23 22:26 | EDPHYS ---
Physician Documentation [facility] Name: Glenda Dang Age: 39 yrs Sex: Female : 1985 Arrival Date: 06/23/2024 Time: 20:53 Bed 7 Private MD: ED Physician Earnest Redd HPI: 06/23 22:25 This 39 yrs old Female presents to ER via Ambulatory with complaints of Insect Bite. kb 22:25 Pt is a 39 year old female who presents for abscess to lateral aspect of right calf kb that started 4 days ago. States she put tobacco on it which made it drain, but the redness around it isn't getting better. Denies fever. Historical: - Allergies: 21:13 No Known Allergies; cm10 - Home Meds: 21:13 None [Active]; cm10 - PMHx: 21:13 Schizophrenia; Anxiety; Depression; cm10 - Immunization history:: Adult Immunizations unknown. - Infectious Disease History:: Denies. - Social history:: Smoking status: Reported history of juuling and/or vaping. ROS: 22:24 Constitutional: As per HPI kb Exam: 22:24 Constitutional: This is a well developed, well nourished patient who is awake, alert, kb and in no acute distress. Head/Face: Normocephalic, atraumatic. ENT: Moist Mucous membranes Cardiovascular: Regular rate Respiratory: Respirations even and unlabored. No increased work of breathing. Talking in full sentences MS/ Extremity: Pulses equal, no cyanosis. Neurovascular intact. Full, normal range of motion. Neuro: Awake and alert, GCS 15, oriented to person, place, time, and situation. 22:24 Skin: abscess, that is moderate sized, of the lateral aspect of right calf, with drainage, with surrounding cellulitis, that is mild, that is moderate, Vital Signs: 21:14 BP 115 / 78; Pulse 93; Resp 17; Temp 98.1; Pulse Ox 100% on R/A; Weight 90.72 kg; cm10 Height 5 ft. 5 in. ; Pain 4/10; 22:21 BP 98 / 77; Pulse 81; Resp 17; Pulse Ox 100% ; vc1 21:14 Body Mass Index 33.28 (90.72 kg, 165.1 cm) cm10 21:14 Pain Scale: Adult cm10 Procedures: 22:24 I \T\ D: Incision and drainage was performed for an abscess of the right lateral aspect kb of right calf Prepped with Betadine, Anesthetized with 1 ml's 1% Lidocaine. Incised with #11 blade. Drained small amount purulent fluid. Dressing: sterile 4x4 gauze, the patient tolerated the procedure well. MDM: 21:05 Medical Screening Exam initiated kb 22:24 Differential diagnosis: insect bite, cellulitis, abscess. Data reviewed: vital signs, kb nurses notes. Counseling: I had a detailed discussion with the patient and/or guardian regarding the historical points, exam findings, and any diagnostic results supporting the discharge/admit diagnosis, the need for outpatient follow up, a family practitioner, to return to the emergency department if symptoms worsen or persist or if there are any questions or concerns that arise at home. 06/23 21:12 Order name: I\T\D Setup; Complete Time: 22:24 kb Administered Medications: 21:37 Drug: Trimethoprim-Sulfamethoxazole PO (160 mg-800 mg (DS) 1 tablet PO once Route: PO; vc1 22:24 Follow up: Response: No adverse reaction vc1 22:23 Drug: Lidocaine Infiltration (1 %) 1 vials 5 ml Infiltration once; to bedside {Note: vc1 Administered by June Lynn NP.} Volume: 5 ml; Route: Infiltration; Disposition Summary: 06/23/24 22:26 Discharge Ordered Notes: Location: Home kb Condition: Stable kb Diagnosis - Cutaneous abscess of right lower limb kb Followup: kb - With: Emergency Department - When: As needed - Reason: Worsening of condition Followup: kb - With: Private Physician - When: 2 - 3 days - Reason: Recheck today's complaints, Continuance of care, Re-evaluation by your physician Discharge Instructions: - Discharge Summary Sheet kb - Skin Abscess, [id number] kb - Incision and Drainage, Care After kb Forms: - Medication Reconciliation Form kb - Antibiotic Education kb - Prescription Opioid Use kb - Patient Portal Instructions kb - Leadership Thank You Letter kb Prescriptions: - Bactrim DS 800-160 mg Oral Tablet - take 1 tablet ORAL route every 12 hours for 7 days; 14 tablet; Refills: 0, kb Product Selection Permitted Signatures: June Lynn, Alexus Freeman RN RN vc1 Sharon Hernandez, RN RN cm10
--- NOTE | 2024-06-23 22:26 | ER ---
Nurse's Notes [facility] Name: Glenda Dang Age: 39 yrs Sex: Female : 1985 Arrival Date: 06/23/2024 Time: 20:53 Bed 7 Private MD: Diagnosis: Cutaneous abscess of right lower limb Presentation: 06/23 21:14 Chief complaint: Patient states: Spider bite to right lower leg. Pt states that she cm10 noticed it 4 days ago. Pt has noted redness and swelling to right lower leg. Coronavirus screen: Client denies travel out of the [place] in the last 14 days. Ebola Screen: Patient denies travel to an Ebola-affected area in the 21 days before illness onset. Initial Sepsis Screen: Does the patient meet any 2 criteria? HR > 90 bpm. No. Patient's initial sepsis screen is negative. Does the patient have a suspected source of infection? No. Patient's initial sepsis screen is negative. Risk Assessment: Do you want to hurt yourself or someone else? Patient reports no desire to harm self or others. Onset of symptoms was June 19, 2024. 21:14 Acuity: NHI 4 cm10 21:14 Method Of Arrival: Ambulatory cm10 Triage Assessment: 21:16 General: Appears in no apparent distress. comfortable, Behavior is calm, cooperative. cm10 Pain: Complains of pain in right leg. Neuro: No deficits noted. Level of Consciousness is awake, alert, obeys commands, Oriented to person, place, time, situation, Appropriate for age. Respiratory: No deficits noted. Airway is patent Respiratory effort is even, unlabored, Respiratory pattern is regular, symmetrical. Derm: Abscess located on lateral aspect of right calf has no drainage, is red, is raised. 21:16 Bite description: bite sustained to lateral aspect of right calf by an unknown animal, vc1 animal information: vaccination(s) is not applicable. Historical: - Allergies: 21:13 No Known Allergies; cm10 - Home Meds: 21:13 None [Active]; cm10 - PMHx: 21:13 Schizophrenia; Anxiety; Depression; cm10 - Immunization history:: Adult Immunizations unknown. - Infectious Disease History:: Denies. - Social history:: Smoking status: Reported history of juuling and/or vaping. Screenin:22 [facility] ED Fall Risk Assessment (Adult) History of falling in the last 3 months, vc1 including since admission No falls in past 3 months (0 pts) Confusion or Disorientation No (0 pts) Intoxicated or Sedated No (0 pts) Impaired Gait No (0 pts) Mobility Assist Device Used No (0 pt) Altered Elimination No (0 pt) Score/Fall Risk Level 0 - 2 = Low Risk Oriented to surroundings, Maintained a safe environment, Educated pt \T\ family on fall prevention, incl call for assistance when getting out of bed. Abuse screen: Denies threats or abuse. Nutritional screening: No deficits noted. Tuberculosis screening: No symptoms or risk factors identified. Assessment: 21:28 Reassessment: Patient and/or family updated on plan of care and expected duration. Pain br2 level reassessed. Patient is alert, oriented x 3, equal unlabored respirations, skin warm/dry/pink. General: Appears uncomfortable, Behavior is calm, cooperative. Pain: Complains of pain in lateral aspect of right calf. Pain: Pain currently is 10 out of 10 on a pain scale. Derm: Skin Skin is moist, Skin is red, Wound noted Other: ABSCESS. 22:21 Reassessment: Patient appears in no apparent distress at this time. No changes from vc1 previously documented assessment. Patient and/or family updated on plan of care and expected duration. Pain level reassessed. Patient is alert, oriented x 3, equal unlabored respirations, skin warm/dry/pink. Vital Signs: 21:14 BP 115 / 78; Pulse 93; Resp 17; Temp 98.1; Pulse Ox 100% on R/A; Weight 90.72 kg; cm10 Height 5 ft. 5 in. ; Pain 4/10; 22:21 BP 98 / 77; Pulse 81; Resp 17; Pulse Ox 100% ; vc1 21:14 Body Mass Index 33.28 (90.72 kg, 165.1 cm) cm10 21:14 Pain Scale: Adult cm10 ED Course: 21:04 Patient arrived in ED. im 21:05 June Lynn FNP-C is PHCP. kb 21:05 Earnest Redd MD is Attending Physician. kb 21:16 Triage completed. cm10 21:16 Arm band placed on right wrist. Patient placed in an exam room, on a stretcher. cm10 21:28 Tarlton, Lindy, RN is Primary Nurse. br2 21:30 Patient has correct armband on for positive identification. Bed in low position. Call vc1 light in reach. Pulse ox on. NIBP on. 22:23 Assist provider with I \T\ D: of an abscess on right lateral calve Set up I\T\D tray. vc 1 Performed by June BROWN Patient tolerated well. 22:41 Provided Education on: wound care. vc1 22:41 Patient did not have IV access during this emergency room visit. vc1 Administered Medications: 21:37 Drug: Trimethoprim-Sulfamethoxazole PO (160 mg-800 mg (DS) 1 tablet PO once Route: PO; vc1 22:24 Follow up: Response: No adverse reaction vc1 22:23 Drug: Lidocaine Infiltration (1 %) 1 vials 5 ml Infiltration once; to bedside {Note: vc1 Administered by June Lynn, [employer].} Volume: 5 ml; Route: Infiltration; Medication: 22:23 VIS not applicable for this client. vc1 Outcome: 22:26 Discharge ordered by . elsa 22:40 Discharged to home ambulatory, with significant other, vc1 22:40 Condition: stable 22:40 Discharge instructions given to patient, Instructed on discharge instructions, follow up and referral plans. medication usage, Demonstrated understanding of instructions, follow-up care, medications, wound care, Prescriptions given X 1, 22:42 Patient left the ED. vc1 Signatures: June Lynn FNP-C FNP-Alexus Cowan RN RN vc1 Geovanna Martinez Clarissa RN RN cm10 Lindy Doss RN RN br2
[2024-06-24 09:19] VITALS: TEMP 98.1; O2SAT 100
[2024-06-24 09:20] VITALS: BP 98/77
== END 2024-06-23 22:42 | disposition home or self-care (01) ==
LOC: ER 20:53
PROC: 0H9KXZZ Drainage of Right Lower Leg Skin, External Approach (ICD-10-PCS; principal; 2024-06-23)
DX: L02.415 Cutaneous abscess of right lower limb (principal)
CPT/HCPCS: J2003

== ENCOUNTER 2025-02-13 00:27 | Emergency (ER) | payer OTHER, SELFPAY ==
--- OUTSIDE RECORDS SUMMARY | 2025-02-13 00:35 | XMS REPORT | Continuity of Care Document ---
Author Name Unknown Address [address] [facility] [address] [place] [address] [facility] Address [address] [facility] [address] [place] [address] Care Team Providers Care Plating Foreman Name Role Phone India Herman Primary Care Physician [phone] Medications Ordered Medication Name Filled Medication Name [...] 300 mg 24 hr tablet, extended release 2023-0 8-19 00:00: 00 Yes 1mg Gabriel Ignacio Latuda 20 mg tablet 0 8-19 00:00: 00 Yes 1mg Gabriel Ignacio hydroxyzine HCl 25 mg tablet 2023-0 8-19 00:00: 00 Yes 1mg Gabriel Ignacio buspirone 15 mg tablet 0 8- 00:00: 00 Yes 1mg Gabriel Ignacio gabapentin 300 mg capsule 0 8- 00:00: 00 Yes 1mg Gabriel Ignacio Wellbutrin XL 300 mg 24 hr tablet, extended release 0 8-05 00:00: 00 Yes 1mg Gabriel Ignacio Latuda 20 mg tablet 0 8-05 00:00: 00 Yes 1mg Gabriel Ignacio hydroxyzine HCl 25 mg tablet 0 8-05 00:00: 00 Yes 1mg Gabriel Ignacio buspirone 15 mg tablet 0 8-05 00:00: 00 Yes 1mg Gabriel Ignacio gabapentin 300 mg capsule 0 8-05 00:00: 00 Yes 1mg Gabriel Ignacio olanzapine 15 mg tablet 0 7- 00:00: 00 Yes 1mg Gabriel Ignacio gabapentin 300 mg capsule 0 7- 00:00: 00 Yes 1mg Gabriel Ignacio Wellbutrin XL 300 mg 24 hr tablet, extended release 2023-0 7- 00:00: 00 Yes 1mg Gabriel Ignacio buspirone 15 mg tablet 2023-0 7- 00:00: 00 Yes 1mg Gabriel Ignacio Wellbutrin XL 300 mg 24 hr tablet, extended release 2023-0 7- 00:00: 00 Yes 1mg Gabriel Ignacio buspirone 15 mg tablet 2023-0 7- 00:00: 00 Yes 1mg Gabriel Ignacio Wellbutrin XL 300 mg 24 hr tablet, extended release 2023-0 6-20 00:00: 00 Yes 1mg Gabriel Ignacio hydroxyzine HCl 25 mg tablet 2023-0 6-20 00:00: 00 Yes 1mg Gabriel Ignacio olanzapine 15 mg tablet -20 00:00: 00 Yes 1mg Gabriel Ignacio buspirone 15 mg tablet 20 00:00: 00 Yes 1mg Gabriel Ignacio gabapentin 300 mg capsule 20 00:00: 00 Yes 1mg Gabriel Ignacio hydroxyzine HCl 25 mg tablet - 00:00: 00 Yes 1mg Gabriel Ignacio olanzapine 15 mg tablet 10-15 00:00: 00 Yes 1mg Gabriel Ignacio gabapentin 100 mg capsule 10-15 00:00: 00 Yes 1mg Gabriel Ignacio TAKE 1 TABLET BY MOUTH AT BEDTIME 08-19 00:00: 00 Yes Gabriel Ignacio TAKE 1 TABLET BY MOUTH THREE TIMES DAILY - 00:00: 00 Yes 15 Gabriel Ignacio Wellbutrin XL 300 mg 24 hr tablet, extended release - 00:00: 00 Yes 1mg Gabriel Ignacio hydroxyzine HCl 25 mg tablet 07-31 00:00: 00 Yes 1mg Gabriel Ignacio buspirone 15 mg tablet - 00:00: 00 Yes 1mg Gabriel Ignacio Zyprexa 10 mg tablet - 00:00: 00 Yes 1mg Gabriel Ignacio gabapentin 300 mg capsule - 00:00: 00 Yes 1mg Gabriel Ignacio Wellbutrin XL 300 mg 24 hr tablet, extended release 18 00:00: 00 Yes 1mg Gabriel Ignacio hydroxyzine HCl 25 mg tablet 18 00:00: 00 Yes 1mg Gabriel Ignacio buspirone 15 mg tablet 18 00:00: 00 Yes 1mg Gabriel Ignacio TAKE [...] MOUTH ONCE DAILY 07-11 00:00: 00 Yes Gabriel Ignacio TAKE 1 TABLET BY MOUTH TWICE [...] Ignacio TAKE 1 TABLET 3 TIMES DAILY. - 00:00: 00 09-24 00:00 :00 No 10 Gabrielrico Ignacio TAKE 1 TABLET 3 TIMES DAILY. -20 00:00: 00 09-24 00:00 :00 No 10 Gabriel Ignacio TAKE 1 TABLET TWICE DAILY NEEDED FOR ANXIETY 2-20 00:00: 00 09-24 00:00 :00 No 25 Gabrielrico Ignacio TAKE 1 TABLET TWICE DAILY. 00:00: 00 09-24 00:00 :00 No 1 Gabrielrico Ignacio TAKE 1 CAPSULE 3 TIMES DAILY. 2 00:00: 00 09-24 00:00 :00 No 300 Gabrielrico Ignacio TAKE 1 TABLET DAILY. 2 00:00: 00 09-24 00:00 :00 No 300 Gabriel Ignacio TAKE 1 TABLET BY MOUTH EVERY 8 HOURS NEEDED FOR PAIN. TAKE WITH EXTRA STRENGTH TYLENOL 2022-05 00:00: 00 Yes Gabriel Ignacio TAKE 1 TABLET TWICE DAILY. 2022-05 2 00:00: 00 09-24 00:00 :00 No 1 Gabrielrico Ignacio TAKE 1 TABLET TWICE DAILY. 2022-05 2 00:00: 00 09-24 00:00 :00 No 10 Gabrielrico Ignacio TAKE 1 CAPSULE 3 TIMES DAILY. 2022-05 2 00:00: 00 09-24 00:00 :00 No 300 Gabrielrico Ignacio TAKE 1 TABLET TWICE DAILY NEEDED FOR ANXIETY 2022-05 2 00:00: 00 09-24 00:00 :00 No 25 Gabrielrico Ignacio TAKE 1 TABLET DAILY. 2022-05 00:00: 00 09-24 00:00 :00 No 150 Gabrielrico Ignacio TAKE 1 CAPSULE 3 TIMES DAILY. 2022-05 1- 00:00: 00 09-24 00:00 :00 No 300 Gabriel Ignacio 15 -30 ML QD ORALLY NEEDED CONSTIPATIO N 2022-05 0-26 00:00: 00 09-24 00:00 :00 No 1015 Gabrielrico Ignacio TAKE 1 TABLET TWICE DAILY. 2022-05 0- 00:00: 00 09-24 00:00 :00 No 10 Gabriel Jessie Ignacio TAKE 1 TABLET DAILY. 2022-05 0- 00:00: 00 09-24 00:00 :00 No 150 Gabrielrico Ignacio TAKE 1 TABLET TWICE DAILY NEEDED FOR ANXIETY 2022-05 0-20 00:00: 00 09-24 00:00 :00 No 25 Gabriel Jessie Ignacio TAKE 1 TABLET TWICE DAILY. 2022-05 0-20 00:00: 00 09-24 00:00 :00 No 5 Gabrielrico Ignacio TAKE 1 TABLET DAILY. 2022-05 0 00:00: 00 Yes 150 Gabrielrico Ignacio TAKE 1 TABLET TWICE DAILY. 2022-05 0 00:00: 00 Yes 1 Gabrielrico Ignacio TAKE 1 TABLET TWICE DAILY NEEDED FOR ANXIETY 2022-05 0 00:00: 00 Yes 25 Gabrielrico Ignacio TAKE 1 TABLET TWICE DAILY. 2022-05 0 00:00: 00 Yes 10 Gabrielrico Ignacio TAKE 1 TABLET TWICE DAILY. 01-23 00:00: 00 09-24 00:00 :00 No 5 Gabriel Jessie Ignacio TAKE 1 TABLET TWICE DAILY NEEDED FOR ANXIETY 01-23 00:00: 00 09-24 00:00 :00 No 25 Gabrielrico Ignacio TAKE 1 TABLET TWICE DAILY. 01-23 00:00: 00 09-24 00:00 :00 No 10 Gabrielrico Ignacio TAKE 1 TABLET DAILY. 01-23 00:00: 00 09-24 00:00 :00 No 150 Gabrielrico Ignacio TAKE 1 TABLET TWICE DAILY. 16 00:00: 00 09-24 00:00 :00 No 10 Gabrielrico Ignacio TAKE 1 TABLET TWICE DAILY NEEDED FOR ANXIETY 16 00:00: 00 09-24 00:00 :00 No 25 Gabrielrico Ignacio TAKE 1 TABLET DAILY. 16 00:00: 00 09-24 00:00 :00 No 150 Gabrielrico Ignacio TAKE 1 TABLET AT BEDTIME. 8-16 00:00: 00 09-24 00:00 :00 No 20 Gabrielrico Ignacio TAKE 1 TABLET TWICE DAILY. 11-20 00:00: 00 09-24 00:00 :00 No 10 Gabriel Jessie Ignacio TAKE 1 TABLET TWICE DAILY NEEDED FOR ANXIETY 11-20 00:00: 00 09-24 00:00 :00 No 25 Gabriel F Mateus TAKE 1 NIGHTLY 11-20 00:00: 00 09-24 00:00 :00 No 15 Gabriel F Mateus TAKE 1 TABLET DAILY. 11-20 00:00: 00 09-24 00:00 :00 No 150 Gabriel F Mateus TAKE 1 TABLET DAILY. 10-31 00:00: 00 09-24 00:00 :00 No 150 Gabriel F Mateus TAKE 1 TABLET TWICE DAILY NEEDED FOR ANXIETY 10-31 00:00: 00 09-24 00:00 :00 No 25 Gabriel F Mateus TAKE 1 NIGHTLY 10-31 00:00: 00 09-24 00:00 :00 No 15 Gabriel F Mateus TAKE 1 TABLET TWICE DAILY. 10-31 00:00: 00 09-24 00:00 :00 No 75 Gabriel F Mateus TAKE 1/2 TABLET BY MOUTH EVERY 6 [...] BY MOUTH DAILY 10-16 00:00: 00 Yes Gabriel Jessie Ignacio TAKE 1 TABLET DAILY. 10-16 00:00: 00 09-24 00:00 :00 No 150 Gabriel Jessie Ignacio TAKE 1 NIGHTLY 10-16 00:00: 00 09-24 00:00 :00 No 15 Gabriel F Mateus GABAPENTIN 300MG 10-04 00:00: 00 09-24 00:00 :00 No Gabriel F Mateus BUSPIRONE 10MG 10-04 00:00: 00 09-24 00:00 :00 No Gabriel F Mateus TAKE 1 NIGHTLY 09-30 00:00: 00 09-24 00:00 :00 No 15 Gabriel F Mateus TAKE 1 CAPSULE 3 TIMES DAILY. 09-30 [...] 10 Gabriel Ignacio GABAPENTIN 300 MG 2021-05 0 00:00: 00 09-24 00:00 :00 No Gabriel Ignacio Wellbutrin XL 300 mg 24 hr tablet, extended release 10-23 00:00: 00 Yes 1mg Gabriel Ignacio buspirone 10 mg tablet 10-23 00:00: 00 Yes 1mg Gabriel Ignacio Abilify 15 mg tablet 10-23 00:00: 00 Yes 1mg Gabriel Ignacio fluoxetine 40 mg capsule - 00:00: 00 Yes 1mg Gabriel Ignacio Wellbutrin XL 300 mg 24 hr tablet, extended release - 00:00: 00 Yes 1mg Gabriel Ignacio buspirone 10 mg tablet - 00:00: 00 Yes 1mg Gabriel Ignacio Abilify 15 mg tablet 6- 00:00: 00 Yes 1mg Gabriel Ignacio fluoxetine 40 mg capsule - 00:00: 00 Yes 1mg Gabriel Ignacio TAKE 1 TABLET BY MOUTH ONCE DAILY - 00:00: 00 Yes Gabriel Ignacio TAKE 1 TABLET BY MOUTH NIGHTLY - 00:00: 00 09-24 00:00 :00 No Gabriel Ingacio Abilify 15 mg tablet 09-21 00:00: 00 Yes 1mg Gabriel Ignacio Wellbutrin XL 300 mg 24 hr tablet, extended release 4-25 00:00: 00 Yes 1mg Gabriel Ignacio buspirone 10 mg tablet 0 4-25 00:00: 00 Yes 1mg Gabriel [...] Yes 1mg Gabriel Ignacio Dose Unknown 0 2-08 00:00: 00 Yes Gabriel Ignacio Prozac [...] 150 mg 24 hr tablet, extended release 1 2-13 00:00: 00 Yes 1mg Gabriel Ignacio Abilify 15 mg tablet 1 2-13 00:00: 00 Yes 1mg Gabriel Ignacio Prozac 20 mg capsule 1 2-13 00:00: 00 Yes 1mg Gabriel Ignacio ibuprofen 600 mg tablet 1 2-07 00:00: 00 Yes 1mg Gabriel Ignacio Abilify 20 mg tablet 2020-0 3-18 00:00: 00 Yes 1mg Gabriel Ignacio Lexapro 20 mg tablet 2020-0 3-18 00:00: 00 Yes 1mg Gabriel Ignacio Wellbutrin XL 300 mg 24 hr tablet, extended release 3-18 00:00: 00 Yes 1mg Gabriel Ignacio Lexapro 20 mg tablet 2- 00:00: 00 Yes 1mg Gabriel Ignacio Abilify 20 mg tablet 2 00:00: 00 Yes 1mg Gabriel Ignacio Wellbutrin XL 300 mg 24 hr tablet, extended release 2- 00:00: 00 Yes 1mg Gabriel Ignacio Lexapro 20 mg tablet 2019-05 2- 00:00: 00 Yes 1mg Gabriel Ignacio Abilify 20 mg tablet 2019-05 00:00: 00 Yes 1mg Gabriel Ignacio Wellbutrin XL 300 mg 24 hr tablet, extended release 2019-05 00:00: 00 Yes 1mg Gabriel Ignacio Wellbutrin XL 150 mg 24 hr tablet, extended release 2019-05- 00:00: 00 Yes 1mg Gabriel Ignacio Abilify 15 mg tablet 2019-05- 00:00: 00 Yes 1mg Gabriel Ignacio Lexapro 20 mg tablet 2019-05- 00:00: 00 Yes 1mg Gbariel Ignacio Wellbutrin XL 150 mg 24 hr tablet, extended release 2019-05 0- 00:00: 00 Yes 1mg Gabriel Ignacio Abilify 10 mg tablet 2019-05 0- 00:00: 00 Yes 1mg Gabriel Ignacio Lexapro 20 mg tablet 2019-05 0- 00:00: 00 Yes 1mg Gabriel Ignacio Wellbutrin XL 150 mg 24 hr tablet, extended release 2019-05 0-03 00:00: 00 Yes 1mg Gabrile Ignacio olanzapine 15 mg tablet 2019-05 0-03 00:00: 00 Yes 1mg Gabriel Ignacio Wellbutrin XL 150 mg 24 hr tablet, extended release - 00:00: 00 Yes 1mg Gabriel Ignacio olanzapine 15 mg tablet 01-13 00:00: 00 Yes 1mg Gabriel Ignacio Lexapro 20 mg tablet 9- 00:00: 00 Yes 1mg Gabriel Ignacio buspirone 10 mg tablet - 00:00: 00 Yes 1mg Gabriel Ignacio Wellbutrin XL 150 mg 24 hr tablet, extended release 2019-0 12-29 00:00: 00 Yes 1mg Gabriel Ignacio Lexapro 20 mg tablet 0 12-29 00:00: 00 Yes 1mg Gabriel Ignacio olanzapine 15 mg tablet 0 12-13 00:00: 00 Yes 1mg Gabriel Ignacio Lexapro 10 mg tablet 2019-0 12-13 00:00: 00 Yes 1mg Gabriel Ignacio buspirone 10 mg tablet 0 12-13 00:00: 00 Yes 1mg Gabriel Ignacio duloxetine 20 mg capsule,del ayed release 0 12-13 00:00: 00 Yes 1mg Gabriel Ignacio olanzapine 15 mg tablet 0 10-06 00:00: 00 Yes 1mg Gabriel Ignacio buspirone 10 mg tablet 2019-0 10-06 00:00: 00 Yes 1mg Gabriel Ignacio duloxetine 60 mg capsule,del ayed release 2019-0 10-06 00:00: 00 Yes 1mg Gabriel Ignacio olanzapine 15 mg tablet 0 08-31 00:00: 00 Yes 1mg Gabriel Ignacio buspirone 10 mg tablet 0 08-31 00:00: 00 Yes 1mg Gabriel Ignacio duloxetine 40 mg capsule,del ayed release 2019-0 21 00:00: 00 Yes 1mg Gabriel Ignacio olanzapine 10 mg disintegrat ing tablet 2019-0 20 00:00: 00 Yes 1mg Gabriel Ignacio olanzapine 15 mg tablet 2019-0 20 00:00: 00 Yes 1mg Gabriel Ignacio buspirone 10 mg tablet 2019-0 20 00:00: 00 Yes 1mg Gabriel Ignacio duloxetine 40 mg capsule,del ayed release 2019-0 4-20 00:00: 00 Yes 1mg Gabriel Ignacio duloxetine 20 mg capsule,del ayed release 2019-0 -20 00:00: 00 Yes 1mg Gabriel Igancio amoxicillin 500 mg tablet 2019-0 -16 00:00: 00 Yes 1mg Gabriel Ignacio buspirone 5 mg tablet 2019-0 1-16 00:00: 00 Yes 1mg Gabriel Ignacio duloxetine 20 mg capsule,del ayed release 2020-0 1-16 00:00: 00 Yes 1mg Gabriel Ignacio buspirone 5 mg tablet 2018-05 016 00:00: 00 Yes 1mg Gabriel Ignacio buspirone 5 mg tablet 01-02 00:00: 00 Yes 1mg Gabriel Ignacio [...] 1mg Gabriel Ignacio buspirone 15 mg tablet 12-23 00:00: 00 Yes 1mg Gabriel Ignacio buspirone 15 mg tablet 12-16 00:00: 00 Yes 1mg Gabriel Ignacio buspirone 15 mg tablet 0 613 00:00: 00 Yes 1mg Gabriel Ignacio buspirone 15 mg tablet 16 00:00: 00 Yes 1mg Gabriel Ignacio buspirone 15 mg tablet 09-11 00:00: 00 Yes 1mg Gabriel Ignacio buspirone 15 mg tablet 417 00:00: 00 Yes 1mg Gabriel Ignacio buspirone 15 mg tablet 0 314 00:00: 00 Yes 1mg Gabriel Ignacio buspirone 10 mg tablet 0 2-07 00:00: 00 Yes 1mg Gabriel Ignacio buspirone 10 mg tablet 1-03 00:00: 00 Yes 1mg Gabriel Ignacio buspirone 10 mg tablet 2016-05 00:00: 00 Yes 1mg Gabriel Ignacio buspirone 5 mg tablet 2016-05 00:00: 00 Yes 1mg Gabriel Ignacio citalopram 40 mg tablet 2016-05 00:00: 00 Yes 1mg Gabriel Ignacio citalopram 40 mg tablet 01-16 00:00: 00 Yes 1mg Gabriel Ignacio haloperidol 1 mg tablet 01-16 00:00: 00 Yes 1mg Gabriel Ignacio propranolol 10 mg tablet 01-16 00:00: 00 Yes 1mg Gabriel Ignacio haloperidol 0.5 mg tablet 12-31 00:00: [...] Weight Measured 2023-07-05 09:50:00 223.00 pounds Gabriel Jessie Igancio Height Measured 2023-07-05 09:50:00 65.00 inches Gabriel F Mateus Body Temperature 2023-07-05 09:50:00 97.90 degrees Gabriel F Mateus Heart Rate 2023-07-05 09:50:00 90.00 /min Kristie en F Mateus Respiratory Rate 2023-07-05 09:50:00 Gabriel F Mateus BP Systolic 2023-03-07 11:49:00 Step hen F Mateus BP Diastolic 2023-03-07 11:49:00 Reji phen F Mateus Weight Measured 2023-03-07 11:49:00 220.00 pounds Gabriel Jessie Ignacio Height Measured 2023-03-07 11:49:00 65.00 inches Gabriel [...] Height Measured 2019-05-28 10:06:00 65.00 inches Gabriel Ignacio Body Temperature 2019-05-28 10:06:00 98.20 degrees Gabriel Ignacio Heart Rate 2019-05-28 10:06:00 84.00 /min Kristie en Jessie Ignacio Respiratory Rate 2019-05-28 10:06:00 Gabriel Ignacio Encounters Start Date/Time End Date/Time Encounter Type Admission Type Attending [facility] Care Department Encounter ID Source 2024-05-22 13:09:12 2024-05-22 13:09:12 Outpatient [facility] S[facility] [id number] Gabriel Ignacio 2024-01-15 00:00:00 2024-01-15 00:00:00 Outpatient Visit SFA [id number] Gabriel Ignacio 2023-12-30 13:01:31 2023-12-30 13:01:31 Outpatient SFA SFA [id number] Gabriel Ignacio 2023-12-12 20:19:41 2023-12-12 20:19:41 Outpatient SFA SFA [id number] Gabriel Ignacio 2023-12-04 08:59:37 2023-12-04 08:59:37 Outpatient S[facility] SFA [id number] Gabriel Ignacio 2023-11-21 13:41:43 2023-11-21 13:41:43 Outpatient SFA SFA [id number] Gabriel Ignacio 2023-07-05 09:18:24 2023-07-05 09:18:24 Outpatient SFA SFA [id number] Gabriel Ignacio 2023-03-07 11:48:59 2023-03-07 11:48:59 Outpatient [facility] SFA [id number] Gabriel Ignacio 2023-02-22 10:50:38 2023-02-22 10:50:38 Outpatient [facility] [id number] Gabriel Ignacio 2023-02-07 13:01:28 2023-02-07 13:01:28 Outpatient [facility] [id number] Gabriel Ignacio 2023-02-06 14:01:57 2023-02-06 14:01:57 Outpatient [facility] [id number] Gabriel Roman [place] 2022-11-20 11:06:59 2022-11-20 11:06:59 Outpatient [facility] [id number] Gabriel Ignacio 2022-02-27 19:43:54 2022-02-27 19:43:54 Outpatient [facility] [id number] Gabriel Ignacio Results Test Description Test Time Test Comments Results Result Co mments Source THYROID II PROFILE (TU,T4,FTI,TSH)2023-07-06 05:57:35* Test Item Value Reference Range Interpretation Comme nts T-UPTAKE (test code = 2817) 30.2 % 24.3-39.0 THYROX. BIND. CAPAC. (test code = 16605) 1.1 0.8-1.3 T4 (THYROXINE) (test code = 2819) 5.7 UG/DL 4.5-10.5 CORRECTED T4 (FTI) (test code = 2820) 5.2 UG/DL 4.2-11.6 TSH, THIRD GENERATION (test code = 2821) 1.060 UIU/ML 0.400-4.100 UNLESS OTHERWISE INDICATED, ALL TESTING PERFORMED AT [facility] [address] [place] [id number] MAGNETIC LOCATER: AUDRA DE LA GARZA M.D. CLIA NUMBER [id number] [facility] [place]. [id number] HEMOGLOBIN [id number] 05:56:12* Test Item Value Reference Range Interpretation Comme nts HEMOGLOBIN A1c (test code = 84270) 5.7 % 4.2-5.6 H [employer] GUIDELINES FOR HGB A1C: [...] ALTERNATE TESTING OR LABORATORY CONSULTATION. COMPREHENSIVE METABOLIC [id number] 05:52:00* Test Item Value Reference Range Interpretation Comme nts GLUCOSE (test code = 2217) 102 MG/DL 70-99 H BUN (test code = 2207) 15 MG/DL 6-20 CREATININE (test code = 2214) 0.89 MG/DL 0.60-1.30 eGFR (2020 CKD-EPI) (test co de = 84616) 84 ML/MIN/1.73 >60 CALC BUN/CREAT (test code = 2235) 17 RATIO 6-28 SODIUM (test code = 223) 136 MEQ/L 133-146 POTASSIUM (test code = 2228) 4.1 MEQ/L 3.5-5.4 CHLORIDE (test code = 2215) 102 MEQ/L 95-107 CARBON DIOXIDE (test code = 2206) 21 MEQ/L 19-31 CALCIUM (test code = 2209) 9.6 MG/DL 8.5-10.5 PROTEIN, TOTAL (test code = 2229) 6.5 G/DL 6.1-8.3 ALBUMIN (test code = 2201) 4.4 G/DL 3.5-5.2 CALC GLOBULIN (test code = 2240) 2.1 G/DL 1.9-3.7 CALC A/G RATIO (test code = 2234) 2.1 RATIO 1.0-2.6 BILIRUBIN, TOTAL (test code = 2207) 0.3 MG/DL <=1.2 ALKALINE PHOSPHATASE (test code = 2204) 76 U/L 40-112 AST (test code = 2218) 18 U/L 9-40 ALT (test code = 2219) 29 U/L 5-40 HEPATIC FUNCTION [id number] 05:52:00* Test Item Value Reference Range Interpretation Comme nts PROTEIN, TOTAL (test code = 2229) 6.5 G/DL 6.1-8.3 ALBUMIN (test code = 2201) 4.4 G/DL 3.5-5.2 BILIRUBIN, TOTAL (test code = 2207) 0.3 MG/DL <=1.2 BILIRUBIN, DIRECT (test code = 2021) 0.1 MG/DL 0.0-0.3 ALKALINE PHOSPHATASE (test c ode = 2203) 76 U/L 40-112 AST (test code = 2217) 18 U/L 9-40 ALT (test code = 2218) 29 U/L 5-40 CBC W/AUTO DIFF WITH [id number] 04:02:28* Test Item Value Reference Range Interpretation [...] 0.00-0.10 ABS NUCLEATED RBCS (test code = 47189) 0.00 K/UL 0.00-0.11 HEMOGLOBIN [id number] 00:00:00* Test Item Value Reference Range Interpretation Comme nts HEMOGLOBIN A1c (test code = 38660) 5.7 % Gabriel IgnacioCBC W/AUTO [id number] 00:00:00* Test Item Value Reference Range Interpretation [...] ABS NUCLEATED RBCS (test cod e = 64794) 0.00 K/UL Gabriel Roman MateusCOMPREHENSIVE METABOLIC [id number] 00:00:00* Test Item Value Reference Range Interpretation Comme nts GLUCOSE (test code = 2217) 102 MG/DL BUN (test code = 2207) 15 MG/DL CREATININE (test code = 2214) 0.89 MG/DL eGFR (2020 CKD-EPI) (test co de = 29610) 84 ML/MIN/1.73 CALC BUN/CREAT (test code = 2235) 17 RATIO SODIUM (test code = 223) 136 MEQ/L POTASSIUM (test code = 2228) 4.1 MEQ/L CHLORIDE (test code = 2215) 102 MEQ/L CARBON DIOXIDE (test code = 2206) 21 MEQ/L CALCIUM (test code = 2209) 9.6 MG/DL PROTEIN, TOTAL (test code = 2228) 6.5 G/DL ALBUMIN (test code = 1) 4.4 G/DL CALC GLOBULIN (test code = 2240) 2.1 G/DL CALC A/G RATIO (test code = 2234) 2.1 RATIO BILIRUBIN, TOTAL (test code = 2206) 0.3 MG/DL ALKALINE PHOSPHATASE (test code = 4) 76 U/L AST (test code = 2218) 18 U/L ALT (test code = 2219) 29 U/L Gabriel IgnacioLIVER (HEPATIC) FUNCTION [id number] 00:00:00* Test Item Value Reference Range Interpretation Comme nts PROTEIN, TOTAL (test code = 222) 6.5 G/DL ALBUMIN (test code = 2201) 4.4 G/DL BILIRUBIN, TOTAL (test code = 7) 0.3 MG/DL BILIRUBIN, DIRECT (test code = 2021) 0.1 MG/DL ALKALINE PHOSPHATASE (test c ode = 2203) 76 U/L AST (test code = 2218) 18 U/L ALT (test code = 2219) 29 U/L Gabriel Roman [id number] 00:00:00* Test Item Value Reference Range Interpretation Comme nts PROLACTIN (test code = 2800) 125.0 NG/ML Gabriel IgnacioTHYROID II PROFILE (TU, T4, T7, TSH)2023-07-06 00:00:00* Test Item Value Reference Range Interpretation Comme nts T-UPTAKE (test code = 281) 30.2 % THYROX. BIND. CAPAC. (test c ode = 08481) 1.1 T4 (THYROXINE) (test code = 2819) 5.7 UG/DL CORRECTED T4 (FTI) (test cod e = 2820) 5.2 UG/DL TSH, THIRD GENERATION (test code = 2821) 1.060 UIU/ML Gabriel Roman MateusCBC W/AUTO [id number] 00:00:00* Test Item Value Reference Range Interpretation [...] 2821) 1.120 UIU/ML Gabriel Roman MateusCOMPREHENSIVE METABOLIC [id number] 00:00:00* Test Item Value Reference Range Interpretation Comme nts GLUCOSE (test code = 2217) 95 MG/DL BUN (test code = 2208) 12 MG/DL CREATININE (test code = 2214) 0.69 MG/DL eGFR AMER. (test cod e = 10120) 133 ML/MIN/1.73 eGFR NON- AMER. (test code = 79835) 114 ML/MIN/1.73 CALC BUN/CREAT (test code = [...] Notes Date/Time Note Provider Source Gabriel Ignacio Count Includes [facility]
[2025-02-13] MEDS ORDERED: ACETAMINOPHEN 500 MG TAB ONE (01:03)
[2025-02-13] MEDS ORDERED: NA CHLORIDE 0.9% 1,000 ML ONE (01:43)
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
--- NOTE | 2025-02-13 04:23 | RAD REPORT ---
Procedure description: XR RIBS RIGHT HISTORY: PAIN COMPARISON: None Findings: Right ribs: 4 views The right lung is well-inflated and clear. The right RIBS without evidence of fracture or deformity. No effusion or pneumothorax in the right chest. Impression: Normal appearance of the right ribs. Electronically signed by: Lionel Fernández MD 02/13/2025 02:03 AM CDT RP Transcribed Date/Time: 02/13/2025 4:22 AM
[2025-02-13 04:42] VITALS: TEMP 98.1
[2025-02-13 04:44] VITALS: BP 127/67; O2SAT 98
== END 2025-02-13 03:12 | disposition home or self-care (01) ==
LOC: ER 00:27
DX: R07.89 Other chest pain (principal); M54.9 Dorsalgia, unspecified
CPT/HCPCS: 99284; J7030